=== PATIENT | female | born 1975 | race Caucasian/White ===

== ENCOUNTER → 2016-10-07 | Outpatient (CLI) | payer OTHER ==
[~2016-10-07] MED LIST: BACL1TAB PO
[2016-10-07 09:54] LABS: BASO % 0.7 %; BASO ABS # 0.03 K/uL (0-0.2); COMPLETE YES; EOS % 2.1 %; IG% 0.2 %; LYMPH % 32.6 %; LYMPH ABS # 1.39 K/uL (1.2-3.4); MEAN CELL VOLUME 87.5 fL (80-100); MEAN CORPUSCULAR HEMOGLOBIN 29.5 pg (25-34); MEAN CORPUSCULAR HGB CONC 33.8 g/dl (32-36); MEAN PLATELET VOLUME 12.4 fL (7.4-10.4); MONO % 8.2 %; NEUT % 56.2 %; PLATELET COUNT 214 K/uL (130-400); RED BLOOD COUNT 4.57 M/uL (4.2-5.4); WHITE BLOOD COUNT 4.27 K/uL (4.8-10.8)
[2016-10-07 11:48] LABS: ALKALINE PHOSPHATASE 63 U/L (45-117); ALT/SGPT 17 U/L (12-78); AST/SGOT 12 U/L (15-37); BLOOD UREA NITROGEN 17 mg/dl (7-18); BUN/CREATININE RATIO 23.6 (10-20); CALCIUM 8.9 mg/dl (8.5-10.1); CARBON DIOXIDE 24 mmol/L (21-32); CHLORIDE 107 mmol/L (98-107); CREATININE 0.73 mg/dl (0.60-1.20); GLUCOSE 73 mg/dl (70-99); POTASSIUM 4.4 mmol/L (3.5-5.1); SODIUM 142 mmol/L (136-145)
[2016-10-07 11:49] LABS: ALB/GLOB RATIO 1.1 (0.9-2)
== END | disposition home or self-care (01) ==
LOC: C.LAB1850 09:19
PROVIDERS: ATTEND Internal Medicine
DX: E55.9 Vitamin D deficiency, unspecified (principal); M13.0 Polyarthritis, unspecified

== ENCOUNTER → 2016-11-04 | Outpatient (CLI) | payer OTHER ==
--- NOTE | 2016-11-04 15:37 | DIAGNOSTIC IMAGING REPORT ---
RIGHT HAND MIN 3 VIEWS ROUTINE, RIGHT WRIST MIN 3 VIEWS ROUTINE CLINICAL HISTORY: Right wrist and right hand pain. Fall. COMPARISON STUDY: None. FINDINGS: No fracture or dislocation within the right hand or right wrist. The scaphoid appears intact. Soft tissues are unremarkable. No radiopaque foreign bodies. IMPRESSION: No fracture or dislocation within the right hand or right wrist. Electronically signed by: Shai Jones M.D. 11/04/2016 3:35 PM Dictated Date/Time: 11/04/2016 3:32 PM
== END | disposition home or self-care (01) ==
LOC: C.RADBC 14:52
PROVIDERS: ATTEND Family Medicine
DX: M79.641 Pain in right hand (principal); M25.531 Pain in right wrist; M79.644 Pain in right finger(s)

== ENCOUNTER → 2016-11-19 | Outpatient (CLI) | payer OTHER ==
[2016-11-19 12:09] LABS: HEMATOCRIT 39.4 % (37-47); MEAN CELL VOLUME 86.8 fL (80-100); MEAN CORPUSCULAR HEMOGLOBIN 29.3 pg (25-34); MEAN CORPUSCULAR HGB CONC 33.8 g/dl (32-36); MEAN PLATELET VOLUME 11.8 fL (7.4-10.4); PLATELET COUNT 230 K/uL (130-400); RED BLOOD COUNT 4.54 M/uL (4.2-5.4); WHITE BLOOD COUNT 6.77 K/uL (4.8-10.8)
== END | disposition home or self-care (01) ==
LOC: C.LAB1850 11:31
PROVIDERS: ATTEND Physician Assistant
DX: R10.32 Left lower quadrant pain (principal)

== ENCOUNTER → 2016-12-30 | Outpatient (CLI) | payer OTHER ==
--- NOTE | 2016-12-30 16:58 | MAMMOGRAPHY REPORT ---
BILATERAL DIGITAL SCREENING MAMMOGRAM TOMOSYNTHESIS WITH CAD: 12/30/2016 CLINICAL HISTORY: Routine screening. TECHNIQUE: Breast tomosynthesis in addition to standard 2D mammography was performed. Current study was also evaluated with a Computer Aided Detection (CAD) system. COMPARISON: Comparison is made to exam dated: 12/25/2015 mammogram - [facility]. BREAST COMPOSITION: The tissue of both breasts is heterogeneously dense, which may obscure small ma sses. FINDINGS: There is a partially visualized oval 17 mm mass within the left posterior breast seen on t he cc view only posterior to the left nipple, best seen on the tomosynthesis images. The visualized margins are circumscribed. This localizes to the inferior breast on the tomosynthesis localizer ba r. Recommend spot compression tomosynthesis views and possible breast ultrasound for further evalua tion. The remainder of both breasts are stable compared to prior exams, without suspicious masses, calcifi cations, or areas of architectural distortion noted. IMPRESSION: ACR BI-RADS CATEGORY 0: INCOMPLETE EVALUATION: NEED ADDITIONAL IMAGING EVALUATION Left breast mass, for which additional imaging evaluation is recommended. The patient will be martines d to schedule an appointment. Approximately 10% of breast cancers are not detected with mammography. A negative mammographic repor t should not delay biopsy if a clinically suggestive mass is present. Sara Segovia M.D. ah/:12/30/2016 16:15:32 Park Ranger: Jensen MENA)(M), [facility] letter sent: Addl Imaging 0 BI-RADS Code: ACR BI-RADS Category 0: Incomplete Evaluation: Need Additional Imaging Evaluation
== END | disposition home or self-care (01) ==
LOC: C.MAMM 09:28
PROVIDERS: ATTEND Internal Medicine
DX: Z12.31 Encounter for screening mammogram for malignant neoplasm of breast (principal); N63 Unspecified lump in breast

== ENCOUNTER → 2017-01-06 | Outpatient (CLI) | payer OTHER ==
--- NOTE | 2017-01-07 08:16 | MAMMOGRAPHY REPORT ---
ULTRASOUND OF LEFT BREAST: 01/06/2017 CLINICAL HISTORY: Callback from screening mammography for an incompletely visualized 17 mm mass in t he far posterior left breast, only seen on the MLO view but thought to project inferiorly based on t he tomosynthesis localizer bar. This may correlate with a recent CT finding in the left inferior leroy ast. COMPARISON: Comparison is made to exams dated: 12/25/2015 mammogram and 12/30/2016 mammogram, CT abdom en and pelvis dated 11/25/2016 - [facility]. FINDINGS: Targeted ultrasound was performed in the 5:00 through 7:00 axes of the left breast to eval uate for the incompletely visualized mammographic mass. In the 5:30 left breast, 600 m from the nip ple, there is an oval parallel circumscribed hypoechoic solid mass measuring 21.9 x 13.4 x 15.5 mm. This correlates well in size, shape and location as the incompletely visualized mammographic mass a nd also with the incidental finding seen on recent CT. This most likely represents a fibroadenoma, but definitive characterization with tissue sampling is recommended. IMPRESSION: ACR BI-RADS CATEGORY 4A: LOW SUSPICION FOR MALIGNANCY - FOLLOW-UP RECOMMENDED 1. Ultrasound guided core needle biopsy is recommended for an indeterminate solid circumscribed 21. 9 mm mass in the 5:30 left breast, which could represent a benign fibroadenoma. These results and recommendations were discussed with the patient at the time of the exam. She tent atively scheduled the biopsy prior to leaving our department. Vanessa Canales M.D. ay/:01/06/2017 13:17:14 Crosscutter Rolled Glass: Dr. Vanessa Canales, [facility] letter sent: Abnormal /5 BI-RADS Code: ACR BI-RADS Category 4A: Low Suspicion For Malignancy
== END | disposition home or self-care (01) ==
LOC: C.MAMM 12:39
PROVIDERS: ATTEND Internal Medicine
DX: N63 Unspecified lump in breast (principal)

== ENCOUNTER → 2017-01-13 | Outpatient (CLI) | payer OTHER ==
--- NOTE | 2017-01-13 08:44 | Discharge Instructions ---
Discharge Instructions Procedure Procedure Date: January 13, 2017. Reason for visit: Left Mass. Discharge Discharge Date: January 13, 2017. Discharge Diagnosis: post left breast ultrasound guided core biopsy Instructions Activity Recommendations: Additional Limitations (see below) Return to School/Work: no limitations Recommended Home Diet: No Limitations Provider Instructions: ACTIVITY RECOMMENDATIONS: * No lifting, pushing, pulling or exercising the affected side for three days. RETURN TO SCHOOL/WORK: * You may return to work/school after the procedure, but do not perform any strenuous activities for 24 to 48 hours. MEDICATIONS: * Tylenol (two 325 mg) every four to six hours if needed for mild pain (if not allergic to Tylenol). DIET: * Resume previous diet. SPECIAL CARE INSTRUCTIONS: * Keep biopsy site dry for 24 hours. May shower after 24 hours, but do not soak (bathe) incision. * May remove Tegaderm (plastic patch) tomorrow AFTER showering. * Leave the steri-strips on for one week. Allow the steri-strips to fall off by themselves. If not off after one week, you may remove them. You may place a Bandaid crosswise over the strips, if desired. * Apply ice 10 minutes on and 10 minutes off as needed. * Wear a bra at bedtime to sleep more comfortably for 2-3 days. * Your referring physician should have the results after approximately 5 to 7 business days. * Call for unusual bleeding, fever, drainage, etc or if you have any questions call [phone] during normal business hours or after hours call Dr Canales, . FOLLOW UP VISIT: Follow-up with Referring Physician as scheduled. Allergies Coded Allergies: No Known Allergies (Verified , 11/09/14) Uncoded Allergies: NKA (Allergy, Unknown, 03/07/15) Leah Kendall Recommendations: Call your doctor if: * Temperature above 101 degrees * Pain not relieved by pain medicine ordered * There is increased drainage or redness from any incision * You have any unanswered questions or concerns. Your Doctors Instructions noted above were prepared by provider Vanessa Canales. Patient Signature Section: Patient Instructions Signature Page Jose M Sabillon Patient (or Guardian) Signature/Date: I have read and understand the instructions given to me by my caregivers. Caregiver/RN/Doctor Signature/Date: The above-named patient and/or guardian has received patient instructions on this date. + Original Patient Signature Page (only) stays with chart. Please make copy for patient.
--- NOTE | 2017-01-13 14:50 | MAMMOGRAPHY REPORT ---
ULTRASOUND GUIDED BIOPSY LEFT BREAST: 01/13/2017 CLINICAL HISTORY: 41-year-old woman presents for biopsy of an oval parallel circumscribed solid 2 cm mass in the 5:30 left breast, 6 cm from the nipple. COMPARISON: Comparison is made to exams dated: 01/06/2017 ultrasound, 12/30/2016 mammogram, and 016 mammogram - [facility]. PATIENT CONSENT: The procedure, risks and benefits were discussed with the patient and informed writ ten consent was obtained. Specific risks to this procedure include: bleeding, infection, puncture of adjacent structure, nontarget biopsy, sampling error, metal allergy medication reaction. PROCEDURE DESCRIPTION: A time out was performed and the left breast was agreed as the site of biopsy . The skin was prepped and draped in the usual sterile fashion. The solid oval circumscribed mass in the 5:30 left breast was chosen as the target for biopsy. Subcutaneous and intraparenchymal 1% buff ered lidocaine was administered as local anesthesia. A skin incision was made. Through the incision , 3 samples were taken with a 14 gauge Achieve biopsy device. A metallic marker was placed at the bi opsy site. Hemostasis was achieved after manual compression. The patient tolerated the procedure wel l and there was no immediate complication. A postprocedure left CC tomosynthesis view was obtained. However, neither the mass nor the metallic biopsy marker are seen given the far posterior and inferior location. No significant hematoma is s een anterior to the mass on the CC view. IMPRESSION: ULTRASOUND GUIDED BIOPSY Status post ultrasound-guided core needle biopsy of a solid circumscribed oval mass in the 5:30 left breast, with biopsy marker placed at the site. The patient will receive notification of the biopsy results from her referring physician. Vanessa Canales M.D. ay/:01/13/2017 09:43:20 Driver Operator: Lou MENA)(Annamaria), [facility]
--- NOTE | 2017-01-13 14:54 | MAMMOGRAPHY REPORT ---
UNILATERAL LEFT DIGITAL DIAGNOSTIC MAMMOGRAM TOMOSYNTHESIS: 01/13/2017 CLINICAL HISTORY: Status post ultrasound-guided core biopsy of a solid oval parallel circumscribed m ass in the 5:30 inferior left breast. Please refer to the report from left breast ultrasound guided core biopsy performed at the same time for full detail. IMPRESSION: POST PROCEDURE IMAGING FOR MARKER PLACEMENT Please refer to the report from left breast ultrasound guided core biopsy performed at the same time for full detail. Approximately 10% of breast cancers are not detected with mammography. A negative mammographic repor t should not delay biopsy if a clinically suggestive mass is present. Vanessa Canales M.D. ay/:01/13/2017 09:36:35 Petal Cutter: Lou RAMOS(Everett)(M), [facility] BI-RADS Code: Post Procedure Imaging For Marker Placement
== END | disposition home or self-care (01) ==
LOC: C.MAMM 07:53
PROVIDERS: ATTEND Internal Medicine
DX: D24.2 Benign neoplasm of left breast (principal)

== ENCOUNTER → 2017-03-24 | Outpatient (CLI) | payer OTHER | END | disposition home or self-care (01) | LOC: C.PAPS 14:17 | PROVIDERS: ATTEND Obstetrics & Gynecology | DX: Z12.4 Encounter for screening for malignant neoplasm of cervix (principal) ==

== ENCOUNTER → 2017-04-07 | Outpatient (CLI) | payer OTHER ==
[2017-04-07 12:19] LABS: HEMATOCRIT 39.3 % (37-47); MEAN CELL VOLUME 89.9 fL (80-100); MEAN CORPUSCULAR HEMOGLOBIN 30.4 pg (25-34); MEAN CORPUSCULAR HGB CONC 33.8 g/dl (32-36); MEAN PLATELET VOLUME 12.5 fL (7.4-10.4); PLATELET COUNT 212 K/uL (130-400); RED BLOOD COUNT 4.37 M/uL (4.2-5.4); WHITE BLOOD COUNT 5.95 K/uL (4.8-10.8)
[2017-04-07 12:33] LABS: ALT/SGPT 33 U/L (12-78); BLOOD UREA NITROGEN 8 mg/dl (7-18); CALCIUM 8.8 mg/dl (8.5-10.1); CARBON DIOXIDE 29 mmol/L (21-32); CHLORIDE 109 mmol/L (98-107); CHOLESTEROL 217 mg/dl (0-200); GLUCOSE 81 mg/dl (70-99); POTASSIUM 3.7 mmol/L (3.5-5.1); SODIUM 141 mmol/L (136-145); TRIGLYCERIDES 200 mg/dl (0-150); VERY LOW DENSITY LIPOPROT CALC 40 mg/dl
[2017-04-07 12:43] LABS: ALB/GLOB RATIO 1.1 (0.9-2); ALKALINE PHOSPHATASE 50 U/L (45-117); AST/SGOT 24 U/L (15-37); CHOLESTEROL/HDL RATIO 4.8; HDL CHOLESTEROL 45 mg/dl; LDL CHOLESTEROL CALCULATED 132 mg/dl
== END | disposition home or self-care (01) ==
LOC: C.LAB 09:35
PROVIDERS: ATTEND Internal Medicine
DX: Q79.6 Ehlers-Danlos syndromes (principal); E55.9 Vitamin D deficiency, unspecified; E04.2 Nontoxic multinodular goiter

== ENCOUNTER → 2017-11-25 | Outpatient (CLI) | payer OTHER ==
[2017-11-25 10:34] LABS: HEMATOCRIT 41.2 % (37-47); MEAN CORPUSCULAR HEMOGLOBIN 30.2 pg (25-34); MEAN PLATELET VOLUME 12.4 fL (7.4-10.4); PLATELET COUNT 214 K/uL (130-400); RED CELL DISTRIBUTION WIDTH CV 13.3 % (11.5-14.5); RED CELL DISTRIBUTION WIDTH SD 43.3 fL (36.4-46.3); WHITE BLOOD COUNT 4.13 K/uL (4.8-10.8)
[2017-11-25 11:05] LABS: BLOOD UREA NITROGEN 12 mg/dl (7-18); CALCIUM 9.2 mg/dl (8.5-10.1); CARBON DIOXIDE 27 mmol/L (21-32); CREATININE 0.81 mg/dl (0.60-1.20); GLUCOSE 90 mg/dl (70-99); SODIUM 138 mmol/L (136-145)
[2017-11-25 11:11] LABS: ALKALINE PHOSPHATASE 62 U/L (45-117); ALT/SGPT 15 U/L (12-78); AST/SGOT 16 U/L (15-37); CHOLESTEROL 202 mg/dl (0-200); LDL CHOLESTEROL CALCULATED 121 mg/dl; TOTAL PROTEIN 7.6 gm/dl (6.4-8.2)
== END | disposition home or self-care (01) ==
LOC: C.LABBC 08:35
PROVIDERS: ATTEND Internal Medicine
DX: G37.9 Demyelinating disease of central nervous system, unspecified (principal); E78.5 Hyperlipidemia, unspecified; E55.9 Vitamin D deficiency, unspecified

== ENCOUNTER → 2018-01-05 | Outpatient (CLI) | payer OTHER ==
--- NOTE | 2018-01-07 07:48 | MAMMOGRAPHY REPORT ---
BILATERAL DIGITAL SCREENING MAMMOGRAM TOMOSYNTHESIS WITH CAD: 01/05/2018 CLINICAL HISTORY: Routine screening. Patient has no complaints. TECHNIQUE: Breast tomosynthesis in addition to standard 2D mammography was performed. Current study was also evaluated with a Computer Aided Detection (CAD) system. COMPARISON: Comparison is made to exams dated: 01/13/2017 mammogram, 01/13/2017 ultrasound biopsy, 12/28 ultrasound, 12/30/2016 mammogram, and 12/25/2015 mammogram - [facility]. BREAST COMPOSITION: There are scattered areas of fibroglandular density in both breasts. FINDINGS: No suspicious masses, calcifications, or areas of architectural distortion are noted in ei ther breast. There has been no significant interval change compared to prior exams. A partially visu alized oval circumscribed 2.2 cm mass in the left 6:00 far posterior breast does not appear significa ntly changed in size compared to the prior 2017 ultrasound exam, and was previously biopsied in 2017 and yielded a benign fibroadenoma at pathology. A triangle marker was placed on the skin at this sit e as the mass is palpable to the patient. IMPRESSION: ACR BI-RADS CATEGORY 2: BENIGN There is no mammographic evidence of malignancy. A 1 year screening mammogram is recommended. Recomm end continued clinical follow-up for the palpable 2.2 cm mass in the left 6:00 breast which was previ ously biopsied in 2017 and yielded a benign fibroadenoma. The patient will receive written notification of the results. Approximately 10% of breast cancers are not detected with mammography. A negative mammographic report should not delay biopsy if a clinically suggestive mass is present. Sara Segovia M.D. ah/:01/05/2018 16:07:07 Well Control Instructor: Britney RAMOS(Everett)(M), [facility] letter sent: Normal 1/2 BI-RADS Code: ACR BI-RADS Category 2: Benign
== END | disposition home or self-care (01) ==
LOC: C.MAMM 09:27
PROVIDERS: ATTEND Obstetrics & Gynecology
DX: Z12.31 Encounter for screening mammogram for malignant neoplasm of breast (principal); N63.42 Unspecified lump in left breast, subareolar

== ENCOUNTER 2021-11-22 23:39 | Inpatient (IN) ==
[2021-11-22] MEDS ORDERED: SODIUM CHLORIDE 0.9% 1000ML 1,000 ML IV SCH (23:45)
[2021-11-22] MEDS ORDERED: ONDANSETRON INJ 2 MG/ML 2 ML VIAL IV STA (23:54)
[2021-11-22] MEDS ORDERED: MoRPHine SULFATE 4 MG/ML 1 ML CARP\\VIAL IV STA (23:54)
[2021-11-23 00:41] LABS: Basophils # (auto) 0.02 K/uL (0-0.2); Basophils % (auto) 0.2 %; Eosinophils # (auto) 0.07 K/uL (0-0.5); Eosinophils % (auto) 0.8 %; Hematocrit (blood only) 40.3 % (37-47); Hemoglobin 13.6 g/dL (12.0-16.0); Immature Granulocytes # (auto) 0.02 K/uL (0.00-0.02); Immature Granulocytes % (auto) 0.2 %; Lymphocytes % (auto) 16.6 %; Mean Corpuscular Hemoglobin 29.6 pg (25-34); Mean Corpuscular Hgb Conc 33.7 g/dL (32-36); Mean Corpuscular Volume 87.6 fL (80-100); Mean Platelet Volume 12.3 fL (7.4-10.4); Monocytes # (auto) 0.98 K/uL (0.11-0.59); Monocytes % (auto) 10.9 %; Neutrophils # (auto) 6.44 K/uL (1.4-6.5); Neutrophils % (auto) 71.3 %; Platelet Count 249 K/uL (130-400); RDW Coefficient of Variation 13.3 % (11.5-14.5); RDW Standard Deviation 42.3 fL (36.4-46.3); White Blood Count 9.03 K/uL (4.8-10.8)
[2021-11-23 00:49] LABS: Appearance Urine Clear (Clear); Bilirubin Urine Negative (Negative); Blood Urine Negative (Negative); Color Urine Yellow; Glucose Urine UA Negative (Negative); Ketones Urine Negative (Negative); Leukocyte Esterase Urine Negative (Negative); Nitrite Urine Negative (Negative); Protein Urine Negative (Negative); Specific Gravity Urine 1.013 (1.000-1.030); Urobilinogen Urine Negative (Negative); pH Urine 5.5 (4.5-7.5)
[2021-11-23 01:02] LABS: Albumin Globulin Ratio 1.5 (0.9-2); Albumin Level 4.2 gm/dl (3.4-5.0); BUN Creatinine Ratio 12.3 (10-20); Bilirubin,Total 0.4 mg/dl (0.2-1.0); Calcium 8.7 mg/dl (8.5-10.1); Creatinine Clr Calc Pharmacy 132.5 ml/min; Est GFR (African American) 128.9 ml/min; Est GFR (Non-African American) 111.2 ml/min; Globulin 2.8 gm/dl (2.5-4.0); Potassium 3.6 mmol/L (3.5-5.1)
[2021-11-23] MEDS ORDERED: AMPICILLIN/SULBACTAM SOD 3,000 MG in 0.9 % SODIUM CHLORIDE 100 ML IV STA (01:47)
[2021-11-23] MEDS ORDERED: ACETAMINOPHEN 1,000 MG/100 ML VIAL IV STA (01:47)
--- NOTE | 2021-11-23 04:40 | History & Physical Report ---
Date of Service November 23, 2021 Assessment & Plan (1) History of diverticulitis: Plan: 46-year-old female with a past medical history of diverticulitis, positive HARMONY on Humira, Meryl-Danlos polyarthropathy and hemorrhoids presents for evaluation of abdominal pain diagnosed with diverticulitis. #Diverticulitis Patient with a history of diverticulitis and recent colonoscopy presenting with abdominal pain and imaging findings consistent with diverticulitis. Dr. Chen was consulted recommending Unasyn. Patient will be admitted for IV antibiotics and pain control -Daily CBC -N.p.o. -Maintenance fluids with LR -Dr. Chen consulted -Unasyn -Morphine 2 mg / 4 mg every 3 hours as needed pain -Zofran for nausea #Meryl-Danlos syndrome, positive HARMONY, polyarthropathy Chronic problems -Pain management as above -Hold Humira #Electrolyte derangements Replete as indicated #Irritable bowel syndrome Potentially contributing to presentation -Monitor for signs of constipation #Migraines -Holding sumatriptan FENa: N.p.o. Code Status: Full code DVT PPX: Contraindicated in the event surgery is warranted SCDs PT/OT: Not indicated Case Management: Not indicated Dispo: Raúl Rodriguez MD PGY 3, FCM This chart was completed utilizing [employer]ation voice recognition software. Grammatical errors, random word insertions, pronoun errors, and in complete sentences are an occasional consequence of the system. Any questions or concerns about the content, text, or information contained within the body of this dictation should be addressed directly to the physician for clarification. (2) Positive HARMONY (antinuclear antibody): (3) Polyarthropathy or polyarthritis of multiple sites: (4) Irritable bowel syndrome: (5) Hyperlipidemia: (6) Sigmoid diverticulitis: (7) Abdominal pain: History of Present Illness Primary Care Provider: Jhonny Pereira MD 46-year-old female with a past medical history of diverticulitis, positive HARMONY on Humira, Meryl-Danlos polyarthropathy and hemorrhoids presents for evaluation of abdominal pain diagnosed with diverticulitis. Patient reports that she has had numerous bouts of diverticulitis throughout her life most recently approximately a month ago she had the worst bout which required a month of Cipro Flagyl subsequently followed by Augmentin. She had a colonoscopy on Wednesday of this week and did well in the immediate postoperative. She began to feel typical diverticulitis pains on Wednesday with accompanied loss of appetite, nausea abdominal pain fevers and chills she denies any vomiting. She states her last bowel movement was yesterday. She denies any chest pressure, chest pain, shortness of breath. In the emergency department routine labs were obtained CBC was unremarkable, chemistries are unremarkable, CMP was unremarkable, urine was unremarkable CT abdomen pelvis was performed and consistent with diverticulitis. Hospitalist service was consulted for admission. Patient was sitting upright in bed when I arrived in no acute distress she reiterated in HPI as described above. She notes that she is not currently taking oxycodone or cyclobenzaprine their historical medications from her prior elbow surgery. Allergies Allergy/AdvReac Type Severity Reaction Status Date / Time No Known Allergies Allergy Verified 11/23/21 01:31 Home Medications Medication Instructions Recorded Confirmed Type multivitamin 1 tab PO QAM 11/25/20 11/23/21 History sumatriptan 20 mg/actuation nasal 20 mg INTNAS Q2H PRN #6 ea 07/10/21 11/23/21 Rx spray (Imitrex) adalimumab 40 mg/0.8 mL 40 mg SUBCUT UD 08/25/21 11/23/21 History subcutaneous pen kit (Humira Pen) cyclobenzaprine 5 mg tablet 5 mg PO UD PRN 08/25/21 11/23/21 History ergocalciferol (vitamin D2) 1,250 1,250 mcg PO WK #12 cap 10/01/21 11/23/21 Rx mcg (50,000 unit) capsule (Vitamin D2) oxycodone-acetaminophen 5 mg-325 1 tab PO Q6 PRN 11/23/21 11/23/21 History mg tablet Past Med/Surg History Medical History Meryl-Danlos syndrome, type 3 HYPERMOBILITY PER PT History of diverticulitis History of migraine headaches Internal hemorrhoids Rheumatoid arthritis Vitamin D deficiency Surgical History History of breast biopsy L-BENIGN History of colonoscopy History of hip surgery (~07/20/19) left & right trochanteric bursa excision History of tooth extraction WISDOM TEETH Hx of elbow surgery RT/LEFT Hx of lumpectomy LEFT S/P LEEP hx Family History Mother Arthritis Migraine headache Other No family history of adverse response to anesthesia Denies family history of Ovarian cancer Prostate cancer Myocardial infarction Breast cancer Colorectal cancer Social History Smoking Status: Never smoker Second Hand Exposure: No; Hx Alcohol Use: No Hx Substance Use: No Preferred Language: Pashto Communication Ability: Effective Deli Cutter Slicer Required: No Beliefs That Will Affect Care: None marital status: Current Living Situation: Family Current Living Situation Comment: Lives with and 2 kids current occupational status: employed 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 How many Children do You have: 2 Feels Safe at Home: Yes Childhood Exposure to Second-Hand Smoke: No during the past year weight has: remained stable Dental Care, Regularly: Yes Physical Activity Frequency: 5-6 Times per Week Seatbelt Use: always Sunscreen Use: Yes Gender Identity: Female Assistive Devices: None Review of Systems Review of Systems: as above Physical Exam Physical Exam: General: No acute distress HEENT: Normocephalic atraumatic Neck: No significant lymphadenopathy, trachea midline, normal to visual inspection Cardiac: Regular rate and rhythm, normal S1, normal S2, I did not appreciated any significant murmurs rubs or gallops, I did not appreciate any significant pedal edema, No calf tenderness, capillary refill is less than 3 seconds Respiratory: Clear to auscultation bilaterally with symmetrical chest rise, I did not appreciate any significant wheezes, rales, rhonchi, no increased work of breathing GI: Normal bowel sounds, soft, tender to palpation of left lower quadrant, no rebound, no guarding MSK: No sensory or motor changes, moves all extremities without issue, extremities are warm and well-perfused Skin: [place], clean, dry, intact. Neuro: Alert and oriented x4 Psych: Calm, cooperative, logical thought process Results & Data Results & Data ([facility]) Vital Signs (Past 12 Hours) Vital Signs Temp Pulse Pulse Resp BP BP Pulse Ox 11/23/21 02:00 81 18 138/74 99 11/22/21 23:56 37.7 C H 119 H 18 136/84 97 03/26/22 23:40 37 C 135 H 18 139/94 100 Laboratory Results 11/23/21 11/23/21 11/23/21 Range/Units 02:16 00:24 00:24 WBC (4.8-10.8) K/uL RBC (4.2-5.4) M/uL Hgb (12.0-16.0) g/dL Hct (37-47) % MCV (80-100) fL MCH (25-34) pg MCHC (32-36) g/dL RDW Std Deviation (36.4-46.3) fL RDW Coeff of Geovanna (11.5-14.5) % Plt Count (130-400) K/uL MPV (7.4-10.4) fL Immature Gran % (Auto) % Neut % (Auto) % Lymph % (Auto) % [place] % (Auto) % Eos % (Auto) % Baso % (Auto) % Neut # (Auto) (1.4-6.5) K/uL Lymph # (Auto) (1.2-3.4) K/uL [place] # (Auto) (0.11-0.59) K/uL Eos # (Auto) (0-0.5) K/uL Baso # (Auto) (0-0.2) K/uL Immature Gran # (Auto) (0.00-0.02) K/uL Sodium 136 (136-145) mmol/L Potassium 3.6 (3.5-5.1) mmol/L Chloride 104 (98-107) mmol/L Carbon Dioxide 25 (21-32) mmol/L Anion Gap 7 (3-11) BUN 7 (6-23) mg/dl Creatinine 0.57 L (0.6-1.2) mg/dl Est Cr Clr Drug Dosing 132.5 ml/min Est GFR ( Amer) 128.9 ml/min Est GFR (Non-Af Amer) 111.2 ml/min BUN/Creatinine Ratio 12.3 (10-20) Glucose 104 H (70-99(Fasting)) mg/dl Calcium 8.7 (8.5-10.1) mg/dl Total Bilirubin 0.4 (0.2-1.0) mg/dl AST 13 (13-39) U/L ALT 14 (7-52) U/L Alkaline Phosphatase 66 (34-104) U/L Total Protein 7.0 (6.0-8.3) gm/dl Albumin 4.2 (3.4-5.0) gm/dl Globulin 2.8 (2.5-4.0) gm/dl Albumin/Globulin Ratio 1.5 (0.9-2) Lipase 32 (11-82) U/L Urine Color Yellow Urine Appearance Clear (Clear) Urine pH 5.5 (4.5-7.5) Ur Specific [place] 1.013 (1.000-1.030) Urine Protein Negative (Negative) Urine Glucose (UA) Negative (Negative) Urine Ketones Negative (Negative) Urine Blood Negative (Negative) Urine Nitrite Negative (Negative) Urine Bilirubin Negative (Negative) Urine Urobilinogen Negative (Negative) Ur Leukocyte Esterase Negative (Negative) SARS-CoV-2, RNA, NAAT NEGATIVE (NEGATIVE) 11/23/21 Range/Units 00:24 WBC 9.03 (4.8-10.8) K/uL RBC 4.60 (4.2-5.4) M/uL Hgb 13.6 (12.0-16.0) g/dL Hct 40.3 (37-47) % MCV 87.6 (80-100) fL MCH 29.6 (25-34) pg MCHC 33.7 (32-36) g/dL RDW Std Deviation 42.3 (36.4-46.3) fL RDW Coeff of Geovanna 13.3 (11.5-14.5) % Plt Count 249 (130-400) K/uL MPV 12.3 H (7.4-10.4) fL Immature Gran % (Auto) 0.2 % Neut % (Auto) 71.3 % Lymph % (Auto) 16.6 % [place] % (Auto) 10.9 % Eos % (Auto) 0.8 % Baso % (Auto) 0.2 % Neut # (Auto) 6.44 (1.4-6.5) K/uL Lymph # (Auto) 1.50 (1.2-3.4) K/uL [place] # (Auto) 0.98 H (0.11-0.59) K/uL Eos # (Auto) 0.07 (0-0.5) K/uL Baso # (Auto) 0.02 (0-0.2) K/uL Immature Gran # (Auto) 0.02 (0.00-0.02) K/uL Sodium (136-145) mmol/L Potassium (3.5-5.1) mmol/L Chloride (98-107) mmol/L Carbon Dioxide (21-32) mmol/L Anion Gap (3-11) BUN (6-23) mg/dl Creatinine (0.6-1.2) mg/dl Est Cr Clr Drug Dosing ml/min Est GFR ( Amer) ml/min Est GFR (Non-Af Amer) ml/min BUN/Creatinine Ratio (10-20) Glucose (70-99(Fasting)) mg/dl Calcium (8.5-10.1) mg/dl Total Bilirubin (0.2-1.0) mg/dl AST (13-39) U/L ALT (7-52) U/L Alkaline Phosphatase (34-104) U/L Total Protein (6.0-8.3) gm/dl Albumin (3.4-5.0) gm/dl Globulin (2.5-4.0) gm/dl Albumin/Globulin Ratio (0.9-2) Lipase (11-82) U/L Urine Color Urine Appearance (Clear) Urine pH (4.5-7.5) Ur Specific [place] (1.000-1.030) Urine Protein (Negative) Urine Glucose (UA) (Negative) Urine Ketones (Negative) Urine Blood (Negative) Urine Nitrite (Negative) Urine Bilirubin (Negative) Urine Urobilinogen (Negative) Ur Leukocyte Esterase (Negative) SARS-CoV-2, RNA, NAAT (NEGATIVE) Code Status & VTE Plan Code Status full Supervising Physician Co-Signing Physician Notes Patient seen and examined, chart reviewed, case discussed with Dr. Rodriguez and agree with his assessment and plan as documented above. In brief, patient is a 46-year-old female on Humira for rheumatoid arthritis presenting with recurrent diverticulitis. Patient had just completed a prolonged course of Cipro, Flagyl and then Augmentin. On exam she is afebrile, hemodynamically stable, no acute distress Skinwarm, dry, intact HEENTnormocephalic, atraumatic, pupils equal and reactive, moist mucous membranes Heart+ S1, S2, regular Lungsclear to auscultation anteriorly Abdomenpositive bowel sounds, soft, tender in the left lower quadrant with voluntary guarding, no rebound Extremitieswarm, well-perfused Labs and images reviewed No perforation, abscess or complications noted Assessment/plan 46-year-old female with history of RA on Humira, immunocompromised presenting with recurrent diverticulitis. Afebrile, hemodynamically stable and nontoxic in appearance Pain control, antiemetics Unasyn GI consult appreciated Patient may need surgical evaluation in the future Remainder of plan as above
[2021-11-23] MEDS ORDERED: MoRPHine SULFATE 4 MG/ML 1 ML CARP\\VIAL IV PRN (04:59)
[2021-11-23] MEDS ORDERED: ONDANSETRON INJ 2 MG/ML 2 ML VIAL IV PRN (04:59)
[2021-11-23] MEDS ORDERED: MoRPHine SULFATE 2 MG/ML CARP IV PRN ×2 (04:59→11:47)
--- NOTE | 2021-11-23 05:02 | Emergency Department Note ---
History of Present Illness General Chief complaint: Abdominal Pain Stated complaint: R SIDE ABD PAIN RADIATING INTO BACK AND LEG Time Seen by Provider: 11/22/21 23:46 History of Present Illness Maximum Pain Intensity: 2 This is a 46-year-old female presenting to the emergency department for evaluation of left lower quadrant abdominal pain worsening over the course of today. The patient has a fairly complicated recent history with diverticulitis. The patient has been on long-term courses of Cipro and Flagyl as well as a course of Augmentin over the past few months. She did undergo outpatient colonoscopy [address] Chen, that did show small diverticula and small polyp that was removed. Patient is on Humira for rheumatoid arthritis. She believes that she may have had a low-grade fever tonight. She rates her discomfort a 2/10, dull, nonradiating. Home Medications Medication Instructions Recorded Confirmed Type multivitamin 1 tab PO QAM 11/25/20 11/23/21 History sumatriptan 20 mg/actuation nasal 20 mg INTNAS Q2H PRN #6 ea 07/10/21 11/23/21 Rx spray (Imitrex) adalimumab 40 mg/0.8 mL 40 mg SUBCUT UD 08/25/21 11/23/21 History subcutaneous pen kit (Humira Pen) cyclobenzaprine 5 mg tablet 5 mg PO UD PRN 08/25/21 11/23/21 History ergocalciferol (vitamin D2) 1,250 1,250 mcg PO WK #12 cap 10/01/21 11/23/21 Rx mcg (50,000 unit) capsule (Vitamin D2) oxycodone-acetaminophen 5 mg-325 1 tab PO Q6 PRN 11/23/21 11/23/21 History mg tablet Allergies Allergy/AdvReac Type Severity Reaction Status Date / Time No Known Allergies Allergy Verified 11/23/21 01:31 Past Med/Surg History Medical History Meryl-Danlos syndrome, type 3 HYPERMOBILITY PER PT History of diverticulitis History of migraine headaches Internal hemorrhoids Rheumatoid arthritis Vitamin D deficiency Surgical History History of breast biopsy L-BENIGN History of colonoscopy History of hip surgery (~07/20/19) left & right trochanteric bursa excision History of tooth extraction WISDOM TEETH Hx of elbow surgery RT/LEFT Hx of lumpectomy LEFT S/P LEEP hx Family History Mother Arthritis Migraine headache Other No family history of adverse response to anesthesia Denies family history of Ovarian cancer Prostate cancer Myocardial infarction Breast cancer Colorectal cancer Social History Smoking Status: Never smoker Second Hand Exposure: No; Hx Alcohol Use: No Hx Substance Use: No Preferred Language: Greenlandic Communication Ability: Effective Employment Law Specialist Required: No Beliefs That Will Affect Care: None marital status: Current Living Situation: Family Current Living Situation Comment: Lives with and 2 kids current occupational status: employed 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 How many Children do You have: 2 Feels Safe at Home: Yes Childhood Exposure to Second-Hand Smoke: No during the past year weight has: remained stable Dental Care, Regularly: Yes Physical Activity Frequency: 5-6 Times per Week Seatbelt Use: always Sunscreen Use: Yes Gender Identity: Female Assistive Devices: None Review of Systems A total of 10 systems reviewed and were otherwise negative Physical Exam Vital Signs Vital Signs - 24 hr 11/22/21 23:40 11/22/21 23:56 11/23/21 02:00 Temperature 37 C 37.7 C H Temperature Source Temporal Artery Scan Oral Pulse Rate 135 H Pulse Rate [Apical] 119 H 81 Pulse Rhythm [Apical] Regular Regular Pulse Strength [Apical] Normal Normal Respiratory Rate 18 18 18 Respiratory Effort / Characteristics Non-Labored Spontaneous Non-Labored Spontaneous Non-Labored Spontaneous Respiratory Depth Normal Normal Normal Respiratory Pattern Regular Regular Blood Pressure 139/94 Blood Pressure [Right Arm] 136/84 138/74 Blood Pressure Mean 109 Blood Pressure Mean [Right Arm] 101 95 Blood Pressure Position Sitting Blood Pressure Position [Right Arm] Sitting Lying Pulse Oximetry 100 97 99 Oxygen Delivery Method Room Air Room Air Room Air Sepsis Recent Fever Within 48 Hours No Sepsis New/Unexplained Change in Mental Status No Sepsis Action Taken by Nursing No Action Required 11/23/21 04:00 Temperature 37.5 C Temperature Source Oral Pulse Rate Pulse Rate [Apical] 67 Pulse Rhythm [Apical] Regular Pulse Strength [Apical] Normal Respiratory Rate 18 Respiratory Effort / Characteristics Non-Labored Spontaneous Respiratory Depth Normal Respiratory Pattern Blood Pressure Blood Pressure [Right Arm] 136/84 Blood Pressure Mean Blood Pressure Mean [Right Arm] 101 Blood Pressure Position Blood Pressure Position [Right Arm] Lying Pulse Oximetry 97 Oxygen Delivery Method Room Air Sepsis Recent Fever Within 48 Hours Sepsis New/Unexplained Change in Mental Status Sepsis Action Taken by Nursing VITALS: Vitals are noted on the nurse's note and reviewed by myself. Vital signs with mild tachycardia GENERAL: Well-developed, well-nourished, white female, who is in no acute distress and resting comfortably. Patient is cooperative with the examination. HEAD: Normocephalic atraumatic. NECK: Supple without nuchal rigidity. No lymphadenopathy. No thyromegaly. Cervical spine is nontender. HEART: Regular rate and rhythm without murmurs gallops or rubs. LUNGS: Clear to auscultation bilaterally without wheezes, rales or rhonchi. No retractions or accessory muscle use. ABDOMEN: Positive normal bowel sounds x 4. Soft with tenderness in the left lower quadrant. No rebound or guarding. No CVA tenderness. MUSCULOSKELETAL: No muscle atrophy, erythema, or edema noted. Full range of motion in all extremities. Course Administered Medications Discontinued Medications Sodium Chloride (Nss 1000ml) 1,000 mls @ 999 mls/hr IV .Q1H1M FRIDA Stop: 11/23/21 00:45 Last Infusion: 11/23/21 02:21 Dose: 0 mls/hr Documented by: [id number] Admin: 11/23/21 00:19 Dose: 999 mls/hr Documented by: [id number] Acetaminophen (Ofirmev) 1,000 mg in 100 mls @ 400 mls/hr IV NOW STA Stop: 11/23/21 02:01 Last Infusion: 11/23/21 02:20 Dose: 0 mls/hr Documented by: [id number] Admin: 11/23/21 02:00 Dose: 400 mls/hr Documented by: [id number] Morphine Sulfate (Morphine Sulfate 4 Mg/Ml 1 Ml Carp\Vial) 4 mg IV NOW STA Stop: 11/22/21 23:55 Last Admin: 11/23/21 00:19 Dose: 4 mg Documented by: [id number] Ondansetron HCl (Ondansetron Inj 2 Mg/Ml 2 Ml Vial) 4 mg IV NOW STA Stop: 11/22/21 23:55 Last Admin: 11/23/21 00:19 Dose: 4 mg Documented by: [id number] Medical Decision Making Differential Diagnosis Differential diagnosis: Etiologies such as biliary colic, cholecystitis, hepatitis, pancreatitis, cardiac disease, pancreatitis, gastritis, peptic ulcer disease, appendicitis, cystitis, diverticulitis, mesenteric ischemia, inflammatory bowel disease, ileus, bowel obstruction, testicular/adnexal torsion, aortic pathology, shingles, as well as others were considered Laboratory Data Result diagrams: 11/23/21 00:24 11/23/21 00:24 Lab Results 11/23/21 11/23/21 11/23/21 Range/Units 00:24 00:24 00:24 WBC 9.03 (4.8-10.8) K/uL RBC 4.60 (4.2-5.4) M/uL Hgb 13.6 (12.0-16.0) g/dL Hct 40.3 (37-47) % MCV 87.6 (80-100) fL MCH 29.6 (25-34) pg MCHC 33.7 (32-36) g/dL RDW Std Deviation 42.3 (36.4-46.3) fL RDW Coeff of Geovanna 13.3 (11.5-14.5) % Plt Count 249 (130-400) K/uL MPV 12.3 H (7.4-10.4) fL Immature Gran % (Auto) 0.2 % Neut % (Auto) 71.3 % Lymph % (Auto) 16.6 % Converse % (Auto) 10.9 % Eos % (Auto) 0.8 % Baso % (Auto) 0.2 % Neut # (Auto) 6.44 (1.4-6.5) K/uL Lymph # (Auto) 1.50 (1.2-3.4) K/uL [place] # (Auto) 0.98 H (0.11-0.59) K/uL Eos # (Auto) 0.07 (0-0.5) K/uL Baso # (Auto) 0.02 (0-0.2) K/uL Immature Gran # (Auto) 0.02 (0.00-0.02) K/uL Sodium 136 (136-145) mmol/L Potassium 3.6 (3.5-5.1) mmol/L Chloride 104 (98-107) mmol/L Carbon Dioxide 25 (21-32) mmol/L Anion Gap 7 (3-11) BUN 7 (6-23) mg/dl Creatinine 0.57 L (0.6-1.2) mg/dl Est Cr Clr Drug Dosing 132.5 ml/min Est GFR ( Amer) 128.9 ml/min Est GFR (Non-Af Amer) 111.2 ml/min BUN/Creatinine Ratio 12.3 (10-20) Glucose 104 H (70-99(Fasting)) mg/dl Calcium 8.7 (8.5-10.1) mg/dl Total Bilirubin 0.4 (0.2-1.0) mg/dl AST 13 (13-39) U/L ALT 14 (7-52) U/L Alkaline Phosphatase 66 (34-104) U/L Total Protein 7.0 (6.0-8.3) gm/dl Albumin 4.2 (3.4-5.0) gm/dl Globulin 2.8 (2.5-4.0) gm/dl Albumin/Globulin Ratio 1.5 (0.9-2) Lipase 32 (11-82) U/L Urine Color Yellow Urine Appearance Clear (Clear) Urine pH 5.5 (4.5-7.5) Ur Specific [place] 1.013 (1.000-1.030) Urine Protein Negative (Negative) Urine Glucose (UA) Negative (Negative) Urine Ketones Negative (Negative) Urine Blood Negative (Negative) Urine Nitrite Negative (Negative) Urine Bilirubin Negative (Negative) Urine Urobilinogen Negative (Negative) Ur Leukocyte Esterase Negative (Negative) SARS-CoV-2, RNA, NAAT (NEGATIVE) 11/23/21 Range/Units 02:16 WBC (4.8-10.8) K/uL RBC (4.2-5.4) M/uL Hgb (12.0-16.0) g/dL Hct (37-47) % MCV (80-100) fL MCH (25-34) pg MCHC (32-36) g/dL RDW Std Deviation (36.4-46.3) fL RDW Coeff of Geovanna (11.5-14.5) % Plt Count (130-400) K/uL MPV (7.4-10.4) fL Immature Gran % (Auto) % Neut % (Auto) % Lymph % (Auto) % [place] % (Auto) % Eos % (Auto) % Baso % (Auto) % Neut # (Auto) (1.4-6.5) K/uL Lymph # (Auto) (1.2-3.4) K/uL [place] # (Auto) (0.11-0.59) K/uL Eos # (Auto) (0-0.5) K/uL Baso # (Auto) (0-0.2) K/uL Immature Gran # (Auto) (0.00-0.02) K/uL Sodium (136-145) mmol/L Potassium (3.5-5.1) mmol/L Chloride (98-107) mmol/L Carbon Dioxide (21-32) mmol/L Anion Gap (3-11) BUN (6-23) mg/dl Creatinine (0.6-1.2) mg/dl Est Cr Clr Drug Dosing ml/min Est GFR ( Amer) ml/min Est GFR (Non-Af Amer) ml/min BUN/Creatinine Ratio (10-20) Glucose (70-99(Fasting)) mg/dl Calcium (8.5-10.1) mg/dl Total Bilirubin (0.2-1.0) mg/dl AST (13-39) U/L ALT (7-52) U/L Alkaline Phosphatase (34-104) U/L Total Protein (6.0-8.3) gm/dl Albumin (3.4-5.0) gm/dl Globulin (2.5-4.0) gm/dl Albumin/Globulin Ratio (0.9-2) Lipase (11-82) U/L Urine Color Urine Appearance (Clear) Urine pH (4.5-7.5) Ur Specific [place] (1.000-1.030) Urine Protein (Negative) Urine Glucose (UA) (Negative) Urine Ketones (Negative) Urine Blood (Negative) Urine Nitrite (Negative) Urine Bilirubin (Negative) Urine Urobilinogen (Negative) Ur Leukocyte Esterase (Negative) SARS-CoV-2, RNA, NAAT NEGATIVE (NEGATIVE) Imaging Data Radiologist's Impression: Preliminary Findings Only See Final Report For Complete Findings CT ABDOMEN & PELVIS Without Contrast: Comparison: 10/20/2021. Descending colonic diverticulitis. Clear lung bases. Normal cardiac size. Normal abdominal viscera. Normal sto mach. Nonspecific small bowel. Normal appendix. Diverticulosis throughout the descending colon and sigmoid. There is stranding/inflammation with thickening of the wall throughout the inferior aspe ct of the descending colon where there are diverticuli, a combination of findings consistent with diverticulitis. No abscess. No signs of bowel obstruction. Retroflexed uterus. Normal urinary bladder. Normal bony structures. MDM Narrative Physical exam and history were performed. Nursing notes, EMR, and Medication List were personally reviewed. Patient appears to have low abdominal pain bringing her to the ER. She has a fairly complicated history of diverticulitis and is on Humira. She is tachycardic without distinct fever here in the ER. IV access was established and labs were obtained. She was hydrated with normal saline and given IV morphine and IV Zofran for comfort. Patient was sent to CT scan for further evaluation of her symptoms. Patient's blood work is as above and was reviewed. She does not have an elevated white blood cell count. She is without significant anemia or gross electrolyte imbalance. Transaminases are not diagnostic. Urine is without evidence of infection. Covid swab was performed and negative. CT scan was reviewed by myself and radiology. The patient appears to have acute diverticulitis without abscess or perforation on imaging. I did reach out to the patient's sink cutter, Dr. 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 The concern is the patient is on a biologic which will increase h er risk for infection. She has had multiple recurrent infections, and she now has acute diverticulitis despite having normal colonoscopy only a few days ago. Recommendation was for inpatient evaluation with IV antibiotics. I did start the patient on Unasyn and give her IV Tylenol for additional symptom control. Overall the case was discussed with the on-call hospitalist who agreed to evaluate the patient here in the ER. Please see their dictation for further patient course, plan, and disposition. The chart was completed utilizing [employer] Voice Recognition Software. Grammatical errors, random word insertions, pronoun errors, and incomplete sentences are an occasional consequence of this system due to software limitations, ambient noise, and hardware issues. Any formal questions or concerns about the content, text, or information contained within the body of this dictation should be directly addressed to the provider for clarification. . Impression & Plan Acute diverticulitis, Adalimumab (Humira) long-term use, Left sided abdominal pain Discharge Plan Visit Data Chief Complaint: Abdominal Pain Stated Complaint: R SIDE ABD PAIN RADIATING INTO BACK AND LEG ED Provider: Muna Gardiner ED Midlevel Provider: Lionel Sahu Discharge Problem: Acute diverticulitis, Adalimumab (Humira) long-term use, Left sided abdominal pain Forms Stand Alone Forms: linkedFA Prescriptions Prescriptions: No Action sumatriptan [Imitrex] 20 mg/actuation spray,non-aerosol 20 mg INTNAS Q2H PRN (Reason: migraine headache) Qty: 6 RF: 3 ergocalciferol (vitamin D2) [Vitamin D2] 1,250 mcg (50,000 unit) capsule 1,250 mcg PO WK Qty: 12 RF: 0 multivitamin Tablet 1 tab PO QAM RF: 0 Humira Pen 40 mg/0.8 mL Pen Injector Kit 40 mg SUBCUT UD RF: 0 cyclobenzaprine 5 mg tablet 5 mg PO UD PRN (Reason: muscle spasm) RF: 0 oxycodone-acetaminophen 5-325 mg tablet 1 tab PO Q6 PRN (Reason: Pain) RF: 0 Referrals Referrals: Jhonny Pereira MD [Primary Care Provider] -
[2021-11-23] MEDS ORDERED: MoRPHine SULFATE 4 MG/ML 1 ML CARP\\VIAL IV STA (05:22)
--- NOTE | 2021-11-23 05:25 | Billing Data ---
Date of Service November 23, 2021 Coding Level of Care Code INT OBSERVATION CARE 70M LVL 3
[2021-11-23] MEDS ORDERED: AMPICILLIN/SULBACTAM SOD 3,000 MG in 0.9 % SODIUM CHLORIDE 100 ML IV SCH (08:00)
--- NOTE | 2021-11-23 09:43 | CT Scan Report ---
CT abd pelvis wo con CLINICAL HISTORY: LLQ abd pain. Hx divertic. Recent scope 5d ago TECHNIQUE: Helical axial images of the abdomen and pelvis were obtained. Automated dose lowering tech niques and/or adjustment according to patient size were utilized for this exam. This exam was perfor med without intravenous contrast. COMPARISON: Comparison is made to CT abdomen pelvis 10/20/2021 FINDINGS: Lower chest: No acute abnormality Liver: Unremarkable. No focal lesions are seen. Gallbladder and biliary tree: No calcified gallstones. Normal caliber wall. No intra- or extrahepatic biliary ductal dilation. Pancreas: Unremarkable, no focal lesions. Spleen: Unremarkable. Adrenals: Unremarkable. Kidneys and ureters: Unremarkable. Bladder: Unremarkable. Reproductive organs: Uterus is retroverted. Bowel: Scattered diverticula are seen. There is bowel wall thickening and fat stranding about the pro ximal sigmoid colon and distal descending colon. No evidence of perforation or abscess is seen. The a ppendix is normal. Lymph nodes Retroperitoneal: Unremarkable. Mesenteric: Unremarkable. Pelvic: Unremarkable. Peritoneum: Normal. Vessels: Unremarkable. Abdominal wall: Unremarkable. Bones: Unremarkable. IMPRESSION: Findings are compatible with acute diverticulitis without evidence of perforation or abscess. ACT 112: Negative or not required by law. Electronically signed by: Pete Elizondo M.D. 11/23/2021 9:41 AM
[2021-11-23] MEDS ORDERED: ERGOCALCIFEROL 50,000 UNITS 1250 MCG CAP PO SCH (11:30)
[2021-11-23] MEDS: POTASSIUM CHLORIDE 20 MEQ in LACTATED RINGER'S 1,000 ML IV SCH ×2 (11:33→23:37)
[2021-11-23] MEDS ORDERED: MoRPHine SULFATE 10 MG/ML CARP/VIAL IV STA (11:47)
[2021-11-23] MEDS ORDERED: PROMETHAZINE HCL 12.5 MG in SODIUM CHLORIDE 0.9% 50 ML IV STA (11:47)
[2021-11-23] MEDS ORDERED: PIPERACILL/TAZOBAC CONSULT ACTIVE PRN (11:48)
[2021-11-23] MEDS ORDERED: ACETAMINOPHEN 1,000 MG/100 ML VIAL IV PRN (12:03)
--- NOTE | 2021-11-23 12:04 | Hospitalist Progress Note ---
Date of Service November 23, 2021 Assessment & Plan (1) Sigmoid diverticulitis: Plan: 46-year-old female with a past medical history of diverticulitis, positive HARMONY on Humira, Meryl-Danlos polyarthropathy and hemorrhoids presents for evaluation of abdominal pain diagnosed with diverticulitis. --> Aug 30 with CTA/P with acute diverticulitis mid descending colon. Repeat CT 10/20 with interval resolution. Underwent C-scope 11/[address] Chen. 4mm hyperplastic polyp removed. Had completed month long course Cipro/Flagyl followed by Augmentin Doing well, then developed worsening abdominal pain, nausea and presented to ER where CT was performed which was consistent with acute diverticulitis. bowel wall thickening and fat stranding about the proximal sigmoid colon and distal descending colon. No abscess or perforation noted Placed on Unasyn on admission, will switch to Zosyn Continue NPO Added LR @ 80cc/hr +20meq K for maintenance fluids. Check Mag. Keep K>4, mag>2 GI on consult -- appreciate assistance Morphine prn pain -- 6mg IV x 1, decreased frequency to Q2H as wearing off quickly. ?NSAIDs if needed --> Also added IV tyelnol Q8H prn headache/fever/pain Zofran prn nausea but will add Phenergan given issues with pain medications Encourage ambulation Continue to monitor/supportive care/electrolyte replacement as needed Of note, she has been in contact with Dr Fry from general surgery for likely eventual need for resection. Consult if needed as they are aware of patient. (2) History of diverticulitis: Plan: earlier this year. approx 1-2 bouts/year per patient, now more frequent as above rec'd gen surgery f/u (3) Positive HARMONY (antinuclear antibody): Plan: Hx Meryl-Danlos syndrome, positive HARMONY, polyarthropathy Chronic problems -Pain management as above -Hold Humira F/u [place] with her regular Hospitalist Physician (4) Polyarthropathy or polyarthritis of multiple sites: Plan: f/u rheum. humira on hold currently (5) Irritable bowel syndrome: Plan: Potentially contributing to presentation Monitor for signs of constipation Encourage ambulation as pain control achieved (6) Abdominal pain: Plan: 2nd to above also with hx Migraines, on sumatriptan. On hold. --> will order IV tylenol as needed for pain/headache. No migraine but does have headache at present Plan: SCDs for DVT prophylaxis for now Admission and Anticipated Discharge Date Admission Date: November 23, 2021 Supervising Physician Co-Signing Physician Notes PA Supervision Note: I did not personally see or examine the patient today, but I verified all [place]on points of JIA Newman's assessment and plan with the following exceptions/additions: None Subjective BRIDGE NOTE: ADMIT AFTER MIDNIGHT Patient evaluated around lunch. Abdomianl pain present, creeping back up. Morphine effective at taking the edge off but still present. GOt zofran for nausea but now with mild headache. Declined need for tylenol but could be from the zofran. She states she does get nauseated with pain medications as given in the past. She note no further BM at this time. Pain located to her LLQ and LUQ. She notes she had been getting bouts 1-2x/year but the most recent in August and current have been her worst yet. She has been in contact with Dr Fry from general surgery and is looking into surgical options in the near future given increasing recurrence/more frequent time between episodes. Has been on Humira for a couple of months for her +HARMONY/polyarthritis and follows with Rheumatology in [place]. Also with [facility]. Review of Systems Review of Systems: All systems reviewed & are unremarkable except as noted in HPI & below Physical Exam Physical Exam: WD/WN female laying in bed, minimally uncomfortable but no acute distress HEENT: mm slightly dry, trachea midline without deviation RESP: CTAB, no w/c/r, on room air CV: RRR, no edema GI: +BS, generalized tenderness to palpation however increased tenderness LUQ/LLQ, no rigidity, voluntary guarding at times : no [place] Psych: aox3, cooperative Neuro: CN intact, no focal deficit, speech clear and answering questions appropriately Results & Data Results & Data ([facility]) Vital Signs (Past 12 Hours) Vital Signs Temp Pulse Pulse Resp BP Pulse Ox 11/23/21 10:40 36.9 C 97 H 14 115/73 98 11/23/21 08:30 37 C 68 16 116/79 99 11/23/21 06:00 68 18 131/87 97 11/23/21 05:00 76 18 131/74 97 11/23/21 04:00 37.5 C 67 18 136/84 97 11/23/21 02:00 81 18 138/74 99 11/22/21 23:56 37.7 C H 119 H 18 136/84 97 Laboratory Results 11/23/21 11/23/21 11/23/21 Range/Units 02:16 00:24 00:24 WBC (4.8-10.8) K/uL RBC (4.2-5.4) M/uL Hgb (12.0-16.0) g/dL Hct (37-47) % MCV (80-100) fL MCH (25-34) pg MCHC (32-36) g/dL RDW Std Deviation (36.4-46.3) fL RDW Coeff of Geovanna (11.5-14.5) % Plt Count (130-400) K/uL MPV (7.4-10.4) fL Immature Gran % (Auto) % Neut % (Auto) % Lymph % (Auto) % [place] % (Auto) % Eos % (Auto) % Baso % (Auto) % Neut # (Auto) (1.4-6.5) K/uL Lymph # (Auto) (1.2-3.4) K/uL [place] # (Auto) (0.11-0.59) K/uL Eos # (Auto) (0-0.5) K/uL Baso # (Auto) (0-0.2) K/uL Immature Gran # (Auto) (0.00-0.02) K/uL Sodium 136 (136-145) mmol/L Potassium 3.6 (3.5-5.1) mmol/L Chloride 104 (98-107) mmol/L Carbon Dioxide 25 (21-32) mmol/L Anion Gap 7 (3-11) BUN 7 (6-23) mg/dl Creatinine 0.57 L (0.6-1.2) mg/dl Est Cr Clr Drug Dosing 132.5 ml/min Est GFR ( Amer) 128.9 ml/min Est GFR (Non-Af Amer) 111.2 ml/min BUN/Creatinine Ratio 12.3 (10-20) Glucose 104 H (70-99(Fasting)) mg/dl Calcium 8.7 (8.5-10.1) mg/dl Total Bilirubin 0.4 (0.2-1.0) mg/dl AST 13 (13-39) U/L ALT 14 (7-52) U/L Alkaline Phosphatase 66 (34-104) U/L Total Protein 7.0 (6.0-8.3) gm/dl Albumin 4.2 (3.4-5.0) gm/dl Globulin 2.8 (2.5-4.0) gm/dl Albumin/Globulin Ratio 1.5 (0.9-2) Lipase 32 (11-82) U/L Urine Color Yellow Urine Appearance Clear (Clear) Urine pH 5.5 (4.5-7.5) Ur Specific [place] 1.013 (1.000-1.030) Urine Protein Negative (Negative) Urine Glucose (UA) Negative (Negative) Urine Ketones Negative (Negative) Urine Blood Negative (Negative) Urine Nitrite Negative (Negative) Urine Bilirubin Negative (Negative) Urine Urobilinogen Negative (Negative) Ur Leukocyte Esterase Negative (Negative) SARS-CoV-2, RNA, NAAT NEGATIVE (NEGATIVE) 11/23/21 Range/Units 00:24 WBC 9.03 (4.8-10.8) K/uL RBC 4.60 (4.2-5.4) M/uL Hgb 13.6 (12.0-16.0) g/dL Hct 40.3 (37-47) % MCV 87.6 (80-100) fL MCH 29.6 (25-34) pg MCHC 33.7 (32-36) g/dL RDW Std Deviation 42.3 (36.4-46.3) fL RDW Coeff of Geovanna 13.3 (11.5-14.5) % Plt Count 249 (130-400) K/uL MPV 12.3 H (7.4-10.4) fL Immature Gran % (Auto) 0.2 % Neut % (Auto) 71.3 % Lymph % (Auto) 16.6 % [place] % (Auto) 10.9 % Eos % (Auto) 0.8 % Baso % (Auto) 0.2 % Neut # (Auto) 6.44 (1.4-6.5) K/uL Lymph # (Auto) 1.50 (1.2-3.4) K/uL [place] # (Auto) 0.98 H (0.11-0.59) K/uL Eos # (Auto) 0.07 (0-0.5) K/uL Baso # (Auto) 0.02 (0-0.2) K/uL Immature Gran # (Auto) 0.02 (0.00-0.02) K/uL Sodium (136-145) mmol/L Potassium (3.5-5.1) mmol/L Chloride (98-107) mmol/L Carbon Dioxide (21-32) mmol/L Anion Gap (3-11) BUN (6-23) mg/dl Creatinine (0.6-1.2) mg/dl Est Cr Clr Drug Dosing ml/min Est GFR ( Amer) ml/min Est GFR (Non-Af Amer) ml/min BUN/Creatinine Ratio (10-20) Glucose (70-99(Fasting)) mg/dl Calcium (8.5-10.1) mg/dl Total Bilirubin (0.2-1.0) mg/dl AST (13-39) U/L ALT (7-52) U/L Alkaline Phosphatase (34-104) U/L Total Protein (6.0-8.3) gm/dl Albumin (3.4-5.0) gm/dl Globulin (2.5-4.0) gm/dl Albumin/Globulin Ratio (0.9-2) Lipase (11-82) U/L Urine Color Urine Appearance (Clear) Urine pH (4.5-7.5) Ur Specific [place] (1.000-1.030) Urine Protein (Negative) Urine Glucose (UA) (Negative) Urine Ketones (Negative) Urine Blood (Negative) Urine Nitrite (Negative) Urine Bilirubin (Negative) Urine Urobilinogen (Negative) Ur Leukocyte Esterase (Negative) SARS-CoV-2, RNA, NAAT (NEGATIVE) Diagnostic Findings Abdomen/Pelvis CT 11/22/21 23:54 CT abd pelvis wo con CLINICAL HISTORY: LLQ abd pain. Hx divertic. Recent scope 5d ago TECHNIQUE: Helical axial images of the abdomen and pelvis were obtained. Automated dose lowering techniques and/or adjustment according to patient size were utilized for this exam. This exam was performed without intravenous contrast. COMPARISON: Comparison is made to CT abdomen pelvis 10/20/2021 FINDINGS: Lower chest: No acute abnormality Liver: Unremarkable. No focal lesions are seen. Gallbladder and biliary tree: No calcified gallstones. Normal caliber wall. No intra- or extrahepatic biliary ductal dilation. Pancreas: Unremarkable, no focal lesions. Spleen: Unremarkable. Adrenals: Unremarkable. Kidneys and ureters: Unremarkable. Bladder: Unremarkable. Reproductive organs: Uterus is retroverted. Bowel: Scattered diverticula are seen. There is bowel wall thickening and fat stranding about the proximal sigmoid colon and distal descending colon. No evidence of perforation or abscess is seen. The appendix is normal. Lymph nodes Retroperitoneal: Unremarkable. Mesenteric: Unremarkable. Pelvic: Unremarkable. Peritoneum: Normal. Vessels: Unremarkable. Abdominal wall: Unremarkable. Bones: Unremarkable. IMPRESSION: Findings are compatible with acute diverticulitis without evidence of perforation or abscess. ACT 112: Negative or not required by law. Electronically signed by: Pete Elizondo M.D. 11/23/2021 9:41 AM PG Care Time/CCT Total # of Minutes Spent Total Time Spent with Patient: Total time spent is greater than 50% in coordination of care (as documented) at patient's floor/unit and/or counseling patient: Coding Level of Care Code None Diagnoses History of diverticulitis Z87.19 Positive HARMONY (antinuclear antibody) R76.8 Polyarthropathy or polyarthritis of multiple sites M13.0 Irritable bowel syndrome K58.9 Sigmoid diverticulitis K57.32 Abdominal pain R10.9
[2021-11-23] MEDS ORDERED: PIPERACILLIN/TAZOBACTAM 4.5 GM in DEXTROSE 5% 100 ML IV ONE (12:30)
[2021-11-23] MEDS: MULTIVITAMIN TAB PO SCH (12:39)
--- NOTE | 2021-11-23 15:17 | Gastrointestinal Consultation ---
Date of Consultation November 23, 2021 Assessment & Plan (1) Acute diverticulitis: Continue IV Abx as per primary team. Discussed with Dr. Mcneill about changing to Zosyn therapy Recommend surgery consult with Dr. Fry, as she has seen him in the recent past for this issue. I do not believe she has any immediate surgical needs, however, she may need a surgical resection of the sigmoid colon, due to recurrent diverticulitis in the near future, once this acute issue has resolved. Continue clear liquid diet for now, and eventually advance to low fiber diet as tolerated I will follow her clinical course and make further recommendations as needed. History of Present Illness Reason for Consultation: Acute Diverticulitis Attending Physician: Juanita Rodriguez DO History of Present Illness Jose M Sabillon is a 46 yo CF who presented to the ER late last night with complaints of LLQ abdominal pain similar to pain she had experienced with diverticulitis. In fact, she has been seen by Dr. Fry on multiple occasions since August of 2021, with recurrent diverticulitis. She did undergo a colonoscopy last , and was noted to have a hyperplastic polyp in the sigmoid colon, diverticulosis and internal hemorrhoids. She had previously had been on a prolonged course of Augmentin, as well as Cipro/Flagyl therapy, however, upon arrival to the ER last night she underwent a CT scan of the Abd/pelvis, and was noted to have uncomplicated acute diverticulitis in the sigmoid colon. Of note, she does take Humira therapy for Rheumatoid arthritis. I spoke to the ER team early this AM and recommended IV antibiotic therapy and admission due to failed outpatient therapy. She was subsequently admitted and placed on IV Unasyn, given analgesic therapy and IVF. At the time I saw her today, she has had little improvement. She continues to complain of LLQ abdominal pain. She does think it has improved slightly, now 2/10 in intensity, non-radiating without alleviating or exacerbating factors. She denies any fevers, chills, nausea, vomiting, diarrhea, hematemesis, melena or hematochezia, and has no further complaints. Allergies Allergy/AdvReac Type Severity Reaction Status Date / Time No Known Allergies Allergy Verified 11/23/21 01:31 Home Medications Medication Instructions Recorded Confirmed Type multivitamin 1 tab PO QAM 11/25/20 11/23/21 History sumatriptan 20 mg/actuation nasal 20 mg INTNAS Q2H PRN #6 ea 07/10/21 11/23/21 Rx spray (Imitrex) adalimumab 40 mg/0.8 mL 40 mg SUBCUT UD 08/25/21 11/23/21 History subcutaneous pen kit (Humira Pen) cyclobenzaprine 5 mg tablet 5 mg PO UD PRN 08/25/21 11/23/21 History ergocalciferol (vitamin D2) 1,250 1,250 mcg PO WK #12 cap 10/01/21 11/23/21 Rx mcg (50,000 unit) capsule (Vitamin D2) oxycodone-acetaminophen 5 mg-325 1 tab PO Q6 PRN 11/23/21 11/23/21 History mg tablet Patient History Medical History Meryl-Danlos syndrome, type 3 HYPERMOBILITY PER PT History of diverticulitis History of migraine headaches Internal hemorrhoids Rheumatoid arthritis Vitamin D deficiency Surgical History History of breast biopsy L-BENIGN History of colonoscopy History of hip surgery (~07/20/19) left & right trochanteric bursa excision History of tooth extraction WISDOM TEETH Hx of elbow surgery RT/LEFT Hx of lumpectomy LEFT S/P LEEP hx Family History Mother Arthritis Migraine headache Other No family history of adverse response to anesthesia Denies family history of Ovarian cancer Prostate cancer Myocardial infarction Breast cancer Colorectal cancer Social History Smoking Status: Never smoker Second Hand Exposure: No; Hx Alcohol Use: No Hx Substance Use: No Preferred Language: British Communication Ability: Effective Ring Conductor Required: No Beliefs That Will Affect Care: None marital status: Current Living Situation: Family Current Living Situation Comment: Lives with and 2 kids current occupational status: employed 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 How many Children do You have: 2 Feels Safe at Home: Yes Childhood Exposure to Second-Hand Smoke: No during the past year weight has: remained stable Dental Care, Regularly: Yes Physical Activity Frequency: 5-6 Times per Week Seatbelt Use: always Sunscreen Use: Yes Gender Identity: Female Assistive Devices: Contacts Review of Systems Constitutional: as per Subjective / HPI Eyes: as per Subjective / HPI Ear, Nose, Mouth, Throat: as per Subjective / HPI Respiratory: as per Subjective / HPI Cardiovascular: as per Subjective / HPI Gastrointestinal: as per Subjective / HPI Musculoskeletal: as per Subjective / HPI Integumentary: as per Subjective / HPI Neurologic: as per Subjective / HPI Psychiatric: as per Subjective / HPI Endocrine: as per Subjective / HPI Hematologic / Lymphatic: as per Subjective / HPI Allergy / Immunological: as per Subjective / HPI Physical Exam Constitutional: WD/WN, vitals as above Respiratory: normal respiratory effort, lungs clear to auscultation Cardiovascular: RRR, no murmur, no edema Gastrointestinal (Abdomen): Inspection/Auscultation: abdomen normal to inspe ction and normal bowel sounds; abdomen not distended Percussion/Palpation: + abdomen tender (LLQ) and abdomen soft; no guarding and abdomen not rigid Skin: no rashes, warm and dry Psychiatric: A+Ox3, euthymic affect Results & Data ([facility]) Vital Signs (Past 12 Hours) Vital Signs Temp Pulse Pulse Resp BP Pulse Ox 11/23/21 15:01 37.1 C 89 14 107/71 99 11/23/21 10:40 36.9 C 97 H 14 115/73 98 11/23/21 08:30 37 C 68 16 116/79 99 11/23/21 06:00 68 18 131/87 97 11/23/21 05:00 76 18 131/74 97 11/23/21 04:00 37.5 C 67 18 136/84 97 PG Care Time/CCT Total # of Minutes Spent Total Time Spent with Patient: Total time spent is greater than 50% in coordination of care (as documented) at patient's floor/unit and/or counseling patient: Coding Level of Care Code 76971 Inpt Consult Level 3 Diagnoses Acute diverticulitis K57.92
[2021-11-23] MEDS: MAGNESIUM SULFATE / D5W 1 GM/100 ML BAG IV SCH ×2 (17:20→19:24)
[2021-11-23] MEDS: PIPERACILLIN/TAZOBACTAM 3.375 GM in DEXTROSE 5% 100 ML IV SCH (17:31)
[2021-11-23] MEDS: PROMETHAZINE HCL 6.25 MG in SODIUM CHLORIDE 0.9% 50 ML IV PRN (19:53)
[2021-11-23] MEDS: MoRPHine SULFATE 4 MG/ML 1 ML CARP\\VIAL IV PRN (19:54)
[2021-11-24] MEDS ORDERED: Flu Vaccine (Fluarix) 0.5mL SYR (Standard Dose) IM ONE (01:30)
[2021-11-24] MEDS: PIPERACILLIN/TAZOBACTAM 3.375 GM in DEXTROSE 5% 100 ML IV SCH ×3 (02:03→18:11)
[2021-11-24 06:39] LABS: Basophils # (auto) 0.02 K/uL (0-0.2); Basophils % (auto) 0.3 %; Eosinophils # (auto) 0.12 K/uL (0-0.5); Eosinophils % (auto) 2.1 %; Hematocrit (blood only) 35.4 % (37-47); Hemoglobin 11.9 g/dL (12.0-16.0); Immature Granulocytes # (auto) 0.01 K/uL (0.00-0.02); Immature Granulocytes % (auto) 0.2 %; Lymphocytes % (auto) 27.7 %; Mean Corpuscular Hemoglobin 29.8 pg (25-34); Mean Corpuscular Hgb Conc 33.6 g/dL (32-36); Mean Corpuscular Volume 88.7 fL (80-100); Mean Platelet Volume 11.9 fL (7.4-10.4); Monocytes # (auto) 0.38 K/uL (0.11-0.59); Monocytes % (auto) 6.6 %; Neutrophils # (auto) 3.64 K/uL (1.4-6.5); Neutrophils % (auto) 63.1 %; Platelet Count 227 K/uL (130-400); RDW Coefficient of Variation 13.1 % (11.5-14.5); RDW Standard Deviation 42.9 fL (36.4-46.3); Red Blood Count 3.99 M/uL (4.2-5.4); White Blood Count 5.77 K/uL (4.8-10.8)
[2021-11-24 07:09] LABS: Albumin Globulin Ratio 1.5 (0.9-2); Albumin Level 3.5 gm/dl (3.4-5.0); Bilirubin,Total 0.8 mg/dl (0.2-1.0); Calcium 8.3 mg/dl (8.5-10.1); Creatinine Clr Calc Pharmacy 150.7 ml/min; Est GFR (African American) 134.5 ml/min; Est GFR (Non-African American) 116.1 ml/min; Globulin 2.4 gm/dl (2.5-4.0); Magnesium 1.9 mg/dl (1.7-2.4); Total Protein 5.9 gm/dl (6.0-8.3)
[2021-11-24] MEDS: MULTIVITAMIN TAB PO SCH (09:33)
--- NOTE | 2021-11-24 09:34 | Surgery Consultation ---
Date of Consultation November 24, 2021 Assessment & Plan (1) Acute diverticulitis: We do long discussion today. We have had multiple discussions regarding her diverticulitis in the past. Certainly she has had multiple recurrent episodes in a relatively short period of time. However the symptoms clinically and even radiographically have been relatively mild. She has no leukocytosis and no fever. Her being on Humira adds another complicating factor in regards to proceeding with surgery. Nonetheless at her young age and multiple recurrent bouts we may need to consider elective resection of her sigmoid and distal descending colon at some point in the future. Since this is her first bout requiring admission I think we should aggressively treat this with bowel rest and IV antibiotics for several days. Once we get her asymptomatic we may monitor her for several months. I will see if the diverticulitis recurs within this year we may be forced to do something electively. Perhaps we undertreated her previously as an outpatient with oral antibiotics. I will continue to follow her during her inpatient stay. She did have a recent colonoscopy. The minimum time frame for performing surgery would be 8 weeks however I believe we should monitor her to see how she does over the next 6 to 12 months prior to considering surgery. She agrees with this plan. (2) Adalimumab (Humira) long-term use: (3) History of diverticulitis: (4) Positive HARMONY (antinuclear antibody): (5) Polyarthropathy or polyarthritis of multiple sites: History of Present Illness Attending Physician: Kary Mcneill MD History of Present Illness 46-year-old female well-known to me. Seen her multiple times as an outpatient. This is her first inpatient admission for acute diverticulitis. She is feeling somewhat better than when she came in however she continued to have left lower quadrant pain. She is tolerating liquids at this point without difficulty although she has no appetite. Allergies Allergy/AdvReac Type Severity Reaction Status Date / Time No Known Allergies Allergy Verified 11/23/21 01:31 Home Medications Medication Instructions Recorded Confirmed Type multivitamin 1 tab PO QAM 11/25/20 11/23/21 History sumatriptan 20 mg/actuation nasal 20 mg INTNAS Q2H PRN #6 ea 07/10/21 11/23/21 Rx spray (Imitrex) adalimumab 40 mg/0.8 mL 40 mg SUBCUT UD 08/25/21 11/23/21 History subcutaneous pen kit (Humira Pen) cyclobenzaprine 5 mg tablet 5 mg PO UD PRN 08/25/21 11/23/21 History ergocalciferol (vitamin D2) 1,250 1,250 mcg PO WK #12 cap 10/01/21 11/23/21 Rx mcg (50,000 unit) capsule (Vitamin D2) oxycodone-acetaminophen 5 mg-325 1 tab PO Q6 PRN 11/23/21 11/23/21 History mg tablet Patient History Medical History Meryl-Danlos syndrome, type 3 HYPERMOBILITY PER PT History of diverticulitis History of migraine headaches Internal hemorrhoids Rheumatoid arthritis Vitamin D deficiency Surgical History History of breast biopsy L-BENIGN History of colonoscopy History of hip surgery (~07/20/19) left & right trochanteric bursa excision History of tooth extraction WISDOM TEETH Hx of elbow surgery RT/LEFT Hx of lumpectomy LEFT S/P LEEP hx Family History Mother Arthritis Migraine headache Other No family history of adverse response to anesthesia Denies family history of Ovarian cancer Prostate cancer Myocardial infarction Breast cancer Colorectal cancer Social History Smoking Status: Never smoker Second Hand Exposure: No; Hx Alcohol Use: No Hx Substance Use: No Preferred Language: [place] Communication Ability: Effective Weight Training Instructor Required: No Beliefs That Will Affect Care: None marital status: Current Living Situation: Family Current Living Situation Comment: Lives with and 2 kids current occupational status: employed 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 How many Children do You have: 2 Feels Safe at Home: Yes Childhood Exposure to Second-Hand Smoke: No during the past year weight has: remained stable Dental Care, Regularly: Yes Physical Activity Frequency: 5-6 Times per Week Seatbelt Use: always Sunscreen Use: Yes Gender Identity: Female Assistive Devices: Contacts Review of Systems Review of Systems: All systems reviewed & are unremarkable except as noted in HPI & below Physical Exam Constitutional: WD/WN, vitals as above no acute distress and not ill appearing Eyes: PERRL, conjunctivae normal, anicteric sclerae EOM intact bilaterally ENMT: external ear and nose normal, oropharynx normal Ears: no hearing impairment Neck: trachea midline, no thyromegaly Respiratory: normal respiratory effort; no respiratory distress and does not use accessory muscles Cardiovascular: Rate/Rhythm: regular rate and regular rhythm Gastrointestinal (Abdomen): Soft. Positive left lower quadrant tenderness with some mild guarding. There are no peritoneal signs. Skin: no rashes, warm and dry Psychiatric: Orientation: alert, oriented x 3 and cooperative Results & Data ([facility]) Vital Signs (Past 12 Hours) Vital Signs Temp Pulse Resp BP Pulse Ox 11/24/21 07:08 36.8 C 82 14 103/69 98 11/23/21 21:40 36.8 C 88 16 114/77 98 PG Care Time/CCT Total # of Minutes Spent Total Time Spent with Patient: Total time spent is greater than 50% in coordination of care (as documented) at patient's floor/unit and/or counseling patient: Coding Level of Care Code 78654 Inpt Consult Level 4 Diagnoses Acute diverticulitis K57.92 Adalimumab (Humira) long-term use Z79.899 History of diverticulitis Z87.19 Positive HARMONY (antinuclear antibody) R76.8 Polyarthropathy or polyarthritis of multiple sites M13.0
--- NOTE | 2021-11-24 09:47 | Gastroenterology Progress Note ---
Date of Service November 24, 2021 Assessment & Plan (1) Acute diverticulitis: Plan: -Continue IV Zosyn -Continue to monitor CBC, metabolic panel -Clear liquid diet for now; when pain improves, would plan to advance to a low- residue diet -Hold Metamucil during acute episode of diverticulitis -Appreciate surgery recommendations -Continue to monitor for clinical improvement Admission and Anticipated Discharge Date Admission Date: November 23, 2021 Supervising Physician Co-Signing Physician Notes I personally evaluated the patient and agree with the findings as documented by Marla Pierson, E[facility] Exam: Constitutional: WD/WN, vitals as above General: EOM intact bilaterally Neck: normal visual inspection Respiratory: normal respiratory effort, lungs clear to auscultation Cardiovascular: RRR, no murmur, no edema Gastrointestinal: abdomennormal to inspection, nondistended, soft,mild LLQ tenderness, no hepatosplenomegaly Musculoskeletal: no cyanosis, head normal to inspection Skin: no rashes, warm and dry Neurologic: moves all extremities Psychiatric: A and O x3, euthymic affect Subjective Patient is a 46 yo female who is currently admitted with sigmoid diverticulitis. She currently is on IV Zosyn therapy. WBC count is within normal limits at 5.77. H/H 11.9/35.4. She reports minimal improvement in her LLQ pain. She is tolerating clear liquids. She denies bowel movements. She reports that she saw general surgery this morning and the plan is to monitor conservatively. She denies any new complaints at present. Review of Systems Constitutional: no fever and no chills Gastrointestinal: + abdominal pain; no diarrhea/loose stools and no blood in stools Physical Exam Constitutional: well developed Respiratory: normal respiratory effort Gastrointestinal (Abdomen): Inspection/Auscultation: abdomen normal to inspection and normal bowel sounds Percussion/Palpation: + abdomen tender and abdomen soft Musculoskeletal: Head/Neck/Chest: normocephalic Psychiatric: Orientation: alert and oriented x 3 Results & Data Results & Data ([facility]) Vital Signs (Past 12 Hours) Vital Signs Temp Pulse Resp BP Pulse Ox 11/24/21 07:08 36.8 C 82 14 103/69 98 PG Care Time/CCT Total # of Minutes Spent Total Time Spent with Patient: Total time spent is greater than 50% in coordination of care (as documented) at patient's floor/unit and/or counseling patient: Coding Level of Care Code 61467 Subseq Hosp Care Lvl 3 Diagnoses Acute diverticulitis K57.92
[2021-11-24] MEDS: POTASSIUM CHLORIDE 20 MEQ in LACTATED RINGER'S 1,000 ML IV SCH (12:08)
--- NOTE | 2021-11-24 15:03 | Hospitalist Progress Note ---
Date of Service November 24, 2021 Assessment & Plan (1) Sigmoid diverticulitis: Plan: 46-year-old female with a past medical history of diverticulitis, positive HARMONY on Humira, Meryl-Danlos, inflammatory polyarthropathy on Humiram, and hemorrhoids presents for evaluation of abdominal pain diagnosed with recurrent diverticulitis. --> Aug [address] A/P with acute diverticulitis mid descending colon. Repeat CT 10/20 with interval resolution. Underwent C-scope 11/[address] Chen. 4mm hyperplastic polyp removed. Had completed month long course Cipro/Flagyl followed by Augmentin Doing well, then developed worsening abdominal pain, nausea and presented to ER where CT was performed which was consistent with acute diverticulitis. bowel wall thickening and fat stranding about the proximal sigmoid colon and distal descending colon. No abscess or perforation noted Improving but remains with pain in LLQ Afebrile, no leukocytosis -continue Zosyn -continue maintenance IV fluids -continue clears only for now until pain improving -keep Mag. Keep K>4, mag>2 -IV morphine prn pain -GI on consult -- appreciate assistance -appreciate SUrgery consult-try to hold off on elective resection given first need for inpatient hospitalization for diverticulitis -advised to continue to HOLD Humira until infection completely cleared (she never held before when had infection) (2) History of diverticulitis: Plan: earlier this year. approx 1-2 bouts/year per patient, now more frequent as above (3) Positive HARMONY (antinuclear antibody): Plan: Hx Meryl-Danlos syndrome, positive HARMONY, inflammatory polyarthropathy Chronic problems -Pain management as above -Hold Humira F/u Cristina with her regular Pipefitter (4) Polyarthropathy or polyarthritis of multiple sites: Plan: f/u rheum. humira on hold currently (5) Irritable bowel syndrome: Plan: Potentially contributing to presentation Monitor for signs of constipation Encourage ambulation as pain control achieved (6) Abdominal pain: Plan: 2nd to above Plan: SCDs for DVT prophylaxis for now Dispo-continued stay Admission and Anticipated Discharge Date Admission Date: November 23, 2021 Subjective Still pain in LLQ even with laughing and movement, but overall improved. Feeling hungry. No nausea, no lightheadedness, no CP or SOB. Review of Systems Review of Systems: All systems reviewed & are unremarkable except as noted in HPI & below Physical Exam Constitutional: WD/WN, vitals as above Eyes: + anicteric sclerae Neck: trachea midline, no thyromegaly Respiratory: normal respiratory effort, lungs clear to auscultation Cardiovascular: RRR, no murmur, no edema Chest (Breasts): Chest: normal inspection of chest Gastrointestinal (Abdomen): Inspection/Auscultation: abdomen normal to inspection and normal bowel sounds; abdomen not distended Percussion/Palpation: + abdomen tender (LLQ w/o guarding or rebound) and abdomen soft Musculoskeletal: Extremities: extremities normal to inspection; no cyanosis and no clubbing Skin: no rashes, warm and dry Neurologic: moves all extremities and awake; no focal motor deficits Psychiatric: A+Ox3, euthymic affect Lymphatic: no lymphedema Results & Data Results & Data ([facility]) Vital Signs (Past 12 Hours) Vital Signs Temp Pulse Resp BP Pulse Ox 11/24/21 07:08 36.8 C 82 14 103/69 98 Laboratory Results 11/24/21 11/24/21 Range/Units 05:22 05:22 WBC 5.77 (4.8-10.8) K/uL RBC 3.99 L (4.2-5.4) M/uL Hgb 11.9 L (12.0-16.0) g/dL Hct 35.4 L (37-47) % MCV 88.7 (80-100) fL MCH 29.8 (25-34) pg MCHC 33.6 (32-36) g/dL RDW Std Deviation 42.9 (36.4-46.3) fL RDW Coeff of Geovanna 13.1 (11.5-14.5) % Plt Count 227 (130-400) K/uL MPV 11.9 H (7.4-10.4) fL Immature Gran % (Auto) 0.2 % Neut % (Auto) 63.1 % Lymph % (Auto) 27.7 % Lane % (Auto) 6.6 % Eos % (Auto) 2.1 % Baso % (Auto) 0.3 % Neut # (Auto) 3.64 (1.4-6.5) K/uL Lymph # (Auto) 1.60 (1.2-3.4) K/uL Lane # (Auto) 0.38 (0.11-0.59) K/uL Eos # (Auto) 0.12 (0-0.5) K/uL Baso # (Auto) 0.02 (0-0.2) K/uL Immature Gran # (Auto) 0.01 (0.00-0.02) K/uL Sodium 136 (136-145) mmol/L Potassium 4.0 (3.5-5.1) mmol/L Chloride 105 (98-107) mmol/L Carbon Dioxide 25 (21-32) mmol/L Anion Gap 6 (3-11) BUN 5 L (6-23) mg/dl Creatinine 0.50 L (0.6-1.2) mg/dl Est Cr Clr Drug Dosing 150.7 ml/min Est GFR ( Amer) 134.5 ml/min Est GFR (Non-Af Amer) 116.1 ml/min BUN/Creatinine Ratio 10.0 (10-20) Glucose 94 (70-99(Fasting)) mg/dl Calcium 8.3 L (8.5-10.1) mg/dl Magnesium 1.9 (1.7-2.4) mg/dl Total Bilirubin 0.8 (0.2-1.0) mg/dl AST 16 (13-39) U/L ALT 15 (7-52) U/L Alkaline Phosphatase 65 (34-104) U/L Total Protein 5.9 L (6.0-8.3) gm/dl Albumin 3.5 (3.4-5.0) gm/dl Globulin 2.4 L (2.5-4.0) gm/dl Albumin/Globulin Ratio 1.5 (0.9-2) PG Care Time/CCT Total # of Minutes Spent Total Time Spent with Patient: Total time spent is greater than 50% in coordination of care (as documented) at patient's floor/unit and/or counseling patient: Coding Level of Care Code 08032 Subseq Hosp Care Lvl 2 Diagnoses Sigmoid diverticulitis K57.32 History of diverticulitis Z87.19 Positive HARMONY (antinuclear antibody) R76.8 Polyarthropathy or polyarthritis of multiple sites M13.0 Irritable bowel syndrome K58.9 Abdominal pain R10.9
[2021-11-24] MEDS: LACTATED RINGER'S 1,000 ML IV SCH (15:23)
[2021-11-24] MEDS: MoRPHine SULFATE 4 MG/ML 1 ML CARP\\VIAL IV PRN (20:14)
[2021-11-24] MEDS: PROMETHAZINE HCL 6.25 MG in SODIUM CHLORIDE 0.9% 50 ML IV PRN (20:14)
[2021-11-25] MEDS: PIPERACILLIN/TAZOBACTAM 3.375 GM in DEXTROSE 5% 100 ML IV SCH ×3 (01:25→17:20)
[2021-11-25] MEDS: LACTATED RINGER'S 1,000 ML IV SCH (04:05)
[2021-11-25 06:54] LABS: Basophils # (auto) 0.02 K/uL (0-0.2); Basophils % (auto) 0.4 %; Eosinophils # (auto) 0.22 K/uL (0-0.5); Eosinophils % (auto) 4.6 %; Hematocrit (blood only) 34.7 % (37-47); Hemoglobin 11.9 g/dL (12.0-16.0); Immature Granulocytes # (auto) 0.01 K/uL (0.00-0.02); Immature Granulocytes % (auto) 0.2 %; Lymphocytes % (auto) 35.6 %; Mean Corpuscular Hgb Conc 34.3 g/dL (32-36); Mean Corpuscular Volume 87.4 fL (80-100); Mean Platelet Volume 11.5 fL (7.4-10.4); Monocytes # (auto) 0.46 K/uL (0.11-0.59); Monocytes % (auto) 9.6 %; Neutrophils # (auto) 2.37 K/uL (1.4-6.5); Neutrophils % (auto) 49.6 %; Platelet Count 218 K/uL (130-400); RDW Coefficient of Variation 12.9 % (11.5-14.5); RDW Standard Deviation 41.4 fL (36.4-46.3); Red Blood Count 3.97 M/uL (4.2-5.4); White Blood Count 4.78 K/uL (4.8-10.8)
[2021-11-25 07:15] LABS: Albumin Globulin Ratio 1.5 (0.9-2); Albumin Level 3.5 gm/dl (3.4-5.0); BUN Creatinine Ratio 7.5 (10-20); Bilirubin,Total 0.5 mg/dl (0.2-1.0); Calcium 8.6 mg/dl (8.5-10.1); Creatinine Clr Calc Pharmacy 112.5 ml/min; Est GFR (African American) 122.2 ml/min; Est GFR (Non-African American) 105.4 ml/min; Globulin 2.3 gm/dl (2.5-4.0); Magnesium 1.8 mg/dl (1.7-2.4); Potassium 3.8 mmol/L (3.5-5.1); Total Protein 5.8 gm/dl (6.0-8.3)
[2021-11-25] MEDS: MULTIVITAMIN TAB PO SCH (08:37)
--- NOTE | 2021-11-25 09:04 | Surgery Progress Note ---
Date of Service November 25, 2021 Assessment & Plan (1) Acute diverticulitis: Plan: Clinically improving. I agree with stopping the Humira. Considering the frequent recurrent nature of her diverticulitis I would consider keeping her 1 additional day. She could be discharged later today or tomorrow morning. I will need to follow-up with her in about 3 weeks to discuss plans going forward. I would continue a very light bland diet for the next several days even at home. (2) Adalimumab (Humira) long-term use: (3) Positive sm/CLEANER WINDOW antibody: Admission and Anticipated Discharge Date Admission Date: November 24, 2021 Subjective Patient seen. She is continue to slowly improve although she continues to have some left lower quadrant pain. Minimal appetite Physical Exam Constitutional: WD/WN, vitals as above no acute distress and not ill appearing Eyes: PERRL, conjunctivae normal, anicteric sclerae EOM intact bilaterally ENMT: external ear and nose normal, oropharynx normal Ears: no hearing impairment Neck: trachea midline, no thyromegaly Respiratory: normal respiratory effort; no respiratory distress and does not use accessory muscles Cardiovascular: Rate/Rhythm: regular rate and regular rhythm Gastrointestinal (Abdomen): Soft. Mild left lower quadrant tenderness. This is improved since admission. No peritoneal signs Skin: no rashes, warm and dry Psychiatric: Orientation: alert, oriented x 3 and cooperative Results & Data ([facility]) Vital Signs (Past 12 Hours) Vital Signs Temp Pulse Resp BP Pulse Ox 11/25/21 07:41 36.8 C 94 H 16 115/83 99 11/24/21 23:07 36.9 C 80 18 108/72 96 PG Care Time/CCT Total # of Minutes Spent Total Time Spent with Patient: Total time spent is greater than 50% in coordination of care (as documented) at patient's floor/unit and/or counseling patient: Coding Level of Care Code 02549 Subseq Hosp Care Lvl 2 Diagnoses Acute diverticulitis K57.92 Adalimumab (Humira) long-term use Z79.899 Positive sm/CLEANER WINDOW antibody R76.8
[2021-11-25] MEDS ORDERED: oxyCODONE/ACETAMINOPHEN 5mg/325mg TAB PO PRN (09:38)
[2021-11-25] MEDS ORDERED: ACETAMINOPHEN 325 MG TAB PO PRN (09:38)
--- NOTE | 2021-11-25 10:00 | Gastroenterology Progress Note ---
Date of Service November 25, 2021 Assessment & Plan (1) Acute diverticulitis: Plan: -Continue IV Zosyn -Clear liquid diet with plans to progress to low residue when patient feels improvement of her pain -Continue to monitor CBC -Supportive care per primary team Admission and Anticipated Discharge Date Admission Date: November 24, 2021 Supervising Physician Co-Signing Physician Notes I personally evaluated the patient and agree with the findings as documented by Marla Pierson, PAC Exam: Constitutional: WD/WN, vitals as above General: EOM intact bilaterally Neck: normal visual inspection Respiratory: normal respiratory effort, lungs clear to auscultation Cardiovascular: RRR, no murmur, no edema Gastrointestinal: abdomennormal to inspection, nondistended, soft, nontender, no hepatosplenomegaly Musculoskeletal: no cyanosis, head normal to inspection Skin: no rashes, warm and dry Neurologic: moves all extremities Psychiatric: A and O x3, euthymic affect advance diet as tolerated. pain control prn complete 10 day course of abx for diverticulitis. Subjective Patient is a 46 yo female with acute left sided diverticulitis. She is currently on IV Zosyn and clear liquid diet. She reports some improvement of her abdominal pain. No new symptoms at present. Review of Systems Constitutional: no fever and no chills Respiratory: no cough and no dyspnea Cardiovascular: no chest pain Gastrointestinal: + abdominal pain; no diarrhea/loose stools and no blood in stools Physical Exam Constitutional: well developed Cardiovascular: Rate/Rhythm: regular rate Gastrointestinal (Abdomen): Inspection/Auscultation: abdomen normal to inspection Percussion/Palpation: + abdomen tender and abdomen soft Musculoskeletal: Head/Neck/Chest: normocephalic Psychiatric: Orientation: alert and oriented x 3 Results & Data Results & Data ([facility]) Vital Signs (Past 12 Hours) Vital Signs Temp Pulse Resp BP Pulse Ox 11/25/21 07:41 36.8 C 94 H 16 115/83 99 11/24/21 23:07 36.9 C 80 18 108/72 96 PG Care Time/CCT Total # of Minutes Spent Total Time Spent with Patient: Total time spent is greater than 50% in coordination of care (as documented) at patient's floor/unit and/or counseling patient: Coding Level of Care Code 03818 Subseq Hosp Care Lvl 2 Diagnoses Acute diverticulitis K57.92
--- NOTE | 2021-11-25 13:34 | Hospitalist Progress Note ---
Date of Service November 25, 2021 Assessment & Plan (1) Sigmoid diverticulitis: Plan: 46-year-old female with a past medical history of diverticulitis, positive HARMONY on Humira, Meryl-Danlos, inflammatory polyarthropathy on Humiram, and hemorrhoids presents for evaluation of abdominal pain diagnosed with recurrent diverticulitis. --> Aug [address] A/P with acute diverticulitis mid descending colon. Repeat CT 10/20 with interval resolution. Underwent C-scope 11/[address] Chen. 4mm hyperplastic polyp removed. Had completed month long course Cipro/Flagyl followed by Augmentin Doing well, then developed worsening abdominal pain, nausea and presented to ER where CT was performed which was consistent with acute diverticulitis. bowel wall thickening and fat stranding about the proximal sigmoid colon and distal descending colon. No abscess or perforation noted Improving each day but remains with pain in LLQ although not as severe Afebrile, no leukocytosis No BM since admission -advance diet to low fiber today -continue Zosyn x 1 more day and then can likely be discharged to home on po abx--> previously Cipro/Flagyl made her quite nauseated--> suggest Augmentin XR 2000mg po bid x total 14 days upon discharge -dc maintenance IV fluids -IV morphine prn pain -GI on consult -- appreciate assistance -appreciate Surgery consult-try to hold off on elective resection given first need for inpatient hospitalization for diverticulitis -advised to continue to HOLD Humira until infection completely cleared (she never held before when had infection) -f/u with Surgery after discharge (2) History of diverticulitis: Plan: earlier this year. approx 1-2 bouts/year per patient, now more frequent as above (3) Positive HARMONY (antinuclear antibody): Plan: Hx Meryl-Danlos syndrome, positive HARMONY, inflammatory polyarthropathy Chronic problems -Pain management as above -Hold Humira F/u Cristina with her regular Rubber Flap Cutter (4) Polyarthropathy or polyarthritis of multiple sites: Plan: f/u rheum. humira on hold currently (5) Irritable bowel syndrome: Plan: Potentially contributing to presentation Monitor for signs of constipation Encourage ambulation as pain control achieved (6) Abdominal pain: Plan: 2nd to above slowly improving Plan: SCDs for DVT prophylaxis Dispo-continued stay, but hopeful for discharge to home tomorrow if continues to improve Admission and Anticipated Discharge Date Admission Date: November 24, 2021 Subjective Feeling a little less LLQ pain today, still low appetite but did eat a small amount of low fiber food. No BM yet. No other acute issues. Headache now resolved. Review of Systems 2 Review of Systems: All systems reviewed & are unremarkable except as noted in HPI & below Physical Exam Constitutional: WD/WN, vitals as above Eyes: + anicteric sclerae Neck: trachea midline, no thyromegaly Respiratory: normal respiratory effort, lungs clear to auscultation Cardiovascular: RRR, no murmur, no edema Chest (Breasts): Chest: normal inspection of chest Gastrointestinal (Abdomen): Inspection/Auscultation: abdomen normal to inspection and normal bowel sounds; abdomen not distended Percussion/Palpation: + abdomen tender (LLQ w/o guarding or rebound) and abdomen soft Musculoskeletal: Extremities: extremities normal to inspection; no cyanosis and no clubbing Skin: no rashes, warm and dry Neurologic: moves all extremities and awake; no focal motor deficits Psychiatric: A+Ox3, euthymic affect Lymphatic: no lymphedema Results & Data Results & Data ([facility]) Vital Signs (Past 12 Hours) Vital Signs Temp Pulse Resp BP Pulse Ox 11/25/21 07:41 36.8 C 94 H 16 115/83 99 Laboratory Results 11/25/21 11/25/21 Range/Units 06:43 06:43 WBC 4.78 L (4.8-10.8) K/uL RBC 3.97 L (4.2-5.4) M/uL Hgb 11.9 L (12.0-16.0) g/dL Hct 34.7 L (37-47) % MCV 87.4 (80-100) fL MCH 30.0 (25-34) pg MCHC 34.3 (32-36) g/dL RDW Std Deviation 41.4 (36.4-46.3) fL RDW Coeff of Geovanna 12.9 (11.5-14.5) % Plt Count 218 (130-400) K/uL MPV 11.5 H (7.4-10.4) fL Immature Gran % (Auto) 0.2 % Neut % (Auto) 49.6 % Lymph % (Auto) 35.6 % [place] % (Auto) 9.6 % Eos % (Auto) 4.6 % Baso % (Auto) 0.4 % Neut # (Auto) 2.37 (1.4-6.5) K/uL Lymph # (Auto) 1.70 (1.2-3.4) K/uL [place] # (Auto) 0.46 (0.11-0.59) K/uL Eos # (Auto) 0.22 (0-0.5) K/uL Baso # (Auto) 0.02 (0-0.2) K/uL Immature Gran # (Auto) 0.01 (0.00-0.02) K/uL Sodium 140 (136-145) mmol/L Potassium 3.8 (3.5-5.1) mmol/L Chloride 107 (98-107) mmol/L Carbon Dioxide 27 (21-32) mmol/L Anion Gap 6 (3-11) BUN 5 L (6-23) mg/dl Creatinine 0.67 (0.6-1.2) mg/dl Est Cr Clr Drug Dosing 112.5 ml/min Est GFR ( Amer) 122.2 ml/min Est GFR (Non-Af Amer) 105.4 ml/min BUN/Creatinine Ratio 7.5 L (10-20) Glucose 90 (70-99(Fasting)) mg/dl Calcium 8.6 (8.5-10.1) mg/dl Magnesium 1.8 (1.7-2.4) mg/dl Total Bilirubin 0.5 (0.2-1.0) mg/dl AST 13 (13-39) U/L ALT 11 (7-52) U/L Alkaline Phosphatase 56 (34-104) U/L Total Protein 5.8 L (6.0-8.3) gm/dl Albumin 3.5 (3.4-5.0) gm/dl Globulin 2.3 L (2.5-4.0) gm/dl Albumin/Globulin Ratio 1.5 (0.9-2) PG Care Time/CCT Total # of Minutes Spent Total Time Spent with Patient: Total time spent is greater than 50% in coordination of care (as documented) at patient's floor/unit and/or counseling patient: Coding Level of Care Code 26152 Subseq Hosp Care Lvl 2 Diagnoses Sigmoid diverticulitis K57.32 History of diverticulitis Z87.19 Positive HARMONY (antinuclear antibody) R76.8 Polyarthropathy or polyarthritis of multiple sites M13.0 Irritable bowel syndrome K58.9 Abdominal pain R10.9
[2021-11-26] MEDS: PIPERACILLIN/TAZOBACTAM 3.375 GM in DEXTROSE 5% 100 ML IV SCH ×2 (02:10→09:18)
[2021-11-26 06:48] LABS: Basophils % (auto) 0.8 %; Eosinophils % (auto) 4.1 %; Hematocrit (blood only) 40.4 % (37-47); Hemoglobin 13.7 g/dL (12.0-16.0); Immature Granulocytes % (auto) 0.2 %; Lymphocytes # (auto) 1.77 K/uL (1.2-3.4); Lymphocytes % (auto) 36.6 %; Mean Corpuscular Hemoglobin 29.7 pg (25-34); Mean Corpuscular Hgb Conc 33.9 g/dL (32-36); Mean Corpuscular Volume 87.4 fL (80-100); Mean Platelet Volume 11.4 fL (7.4-10.4); Monocytes % (auto) 6.6 %; Neutrophils # (auto) 2.49 K/uL (1.4-6.5); Neutrophils % (auto) 51.7 %; Platelet Count 295 K/uL (130-400); RDW Coefficient of Variation 12.8 % (11.5-14.5); RDW Standard Deviation 41.2 fL (36.4-46.3); Red Blood Count 4.62 M/uL (4.2-5.4); White Blood Count 4.83 K/uL (4.8-10.8)
[2021-11-26 06:49] LABS: Basophils # (auto) 0.04 K/uL (0-0.2); Immature Granulocytes # (auto) 0.01 K/uL (0.00-0.02); Monocytes # (auto) 0.32 K/uL (0.11-0.59)
[2021-11-26 07:19] LABS: BUN Creatinine Ratio 9.9 (10-20); Calcium 9.1 mg/dl (8.5-10.1); Creatinine Clr Calc Pharmacy 106.2 ml/min; Est GFR (African American) 118.4 ml/min; Est GFR (Non-African American) 102.1 ml/min; Magnesium 1.8 mg/dl (1.7-2.4); Phosphorus 4.2 mg/dl (2.5-4.9); Potassium 3.7 mmol/L (3.5-5.1)
[2021-11-26] MEDS: MULTIVITAMIN TAB PO SCH (09:18)
[2021-11-26] MEDS ORDERED: AMOXICILLIN/CLAVULANATE 875 MG TAB PO SCH ×2 (10:25→17:00)
--- NOTE | 2021-11-26 11:10 | Gastroenterology Progress Note ---
Date of Service November 26, 2021 Assessment & Plan (1) Acute diverticulitis: Plan: -Continue low residue diet -Continue to hold Metamucil -Would add Miralax 17 gm daily for now -Should complete a total course of 10 days of antibiotic therapy (Cipro & Flagyl or Augmentin) on discharge Admission and Anticipated Discharge Date Admission Date: November 24, 2021 Supervising Physician Co-Signing Physician Notes I personally evaluated the patient and agree with the findings as documented by Marla Pierson, PAC Exam: Constitutional: WD/WN, vitals as above General: EOM intact bilaterally Neck: normal visual inspection Respiratory: normal respiratory effort, lungs clear to auscultation Cardiovascular: RRR, no murmur, no edema Gastrointestinal: abdomennormal to inspection, nondistended, soft, nontender, no hepatosplenomegaly Musculoskeletal: no cyanosis, head normal to inspection Skin: no rashes, warm and dry Neurologic: moves all extremities Psychiatric: A and O x3, euthymic affect Subjective Patient is a 46 yo female with left sided diverticulitis. She reports improvement of her pain. She notes pain continuing with deep palpation of the LLQ. She continues on IV Zosyn. She ate [place] Balm for breakfast this AM. Review of Systems Constitutional: no fever and no chills Respiratory: no cough and no dyspnea Cardiovascular: no chest pain Gastrointestinal: + abdominal pain; no change in bowel habits, no diarrhea/loose stools and no blood in stools Physical Exam Constitutional: well developed Respiratory: normal respiratory effort Cardiovascular: Rate/Rhythm: regular rate Gastrointestinal (Abdomen): Percussion/Palpation: + abdomen tender and abdomen soft Musculoskeletal: Head/Neck/Chest: normocephalic Results & Data Results & Data ([facility]) Vital Signs (Past 12 Hours) Vital Signs Temp Pulse Pulse Resp BP Pulse Ox 11/26/21 07:38 36.8 C 87 16 134/85 99 11/25/21 23:10 36.9 C 84 14 119/75 96 PG Care Time/CCT Total # of Minutes Spent Total Time Spent with Patient: Total time spent is greater than 50% in coordination of care (as documented) at patient's floor/unit and/or counseling patient: Coding Level of Care Code 33916 Subseq Hosp Care Lvl 3 Diagnoses Acute diverticulitis K57.92
--- NOTE | 2021-11-26 12:37 | Discharge Summary ---
Date of Service November 26, 2021 Admission HPI Per Admitting Provider 46-year-old female with a past medical history of diverticulitis, positive HARMONY on Humira, Meryl-Danlos polyarthropathy and hemorrhoids presents for evaluation of abdominal pain diagnosed with diverticulitis. Patient reports that she has had numerous bouts of diverticulitis throughout her life most recently approximately a month ago she had the worst bout which required a month of Cipro Flagyl subsequently followed by Augmentin. She had a colonoscopy on Wednesday of this week and did well in the immediate postoperative. She began to feel typical diverticulitis pains on Wednesday with accompanied loss of appetite, nausea abdominal pain fevers and chills she denies any vomiting. She states her last bowel movement was yesterday. She denies any chest pressure, chest pain, shortness of breath. In the emergency department routine labs were obtained CBC was unremarkable, chemistries are unremarkable, CMP was unremarkable, urine was unremarkable CT abdomen pelvis was performed and consistent with diverticulitis. Hospitalist service was consulted for admission. Patient was sitting upright in bed when I arrived in no acute distress she reiterated in HPI as described above. She notes that she is not currently taking oxycodone or cyclobenzaprine their historical medications from her prior elbow surgery. Principal Diagnosis Recurrent diverticulitis Discharge Exam General: A&Ox3. NAD. Cooperative. HEENT: Atraumatic, normocephalic. Vision and hearing grossly intact. Pulm: CTAB A&P. -wheezes, -rales, -rhonchi. Symmetrical chest rise. No increase in work of breathing. No respiratory distress. Cardiac: RRR, -mrg. Radial pulses intact and symmetrical. Abdominal: Trace left lower quadrant tenderness to palpation without rebound, guarding, or radiation. Bowel sounds intact. Extremities: Warm, dry. Sensation intact in hands and feet to soft touch without asymmetry. 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 PT pulses intact. 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 To do as outpatient: 1. Complete diverticulitis treatment with 10 additional days of Augmentin XR 2 g twice daily 2. Follow-up with surgery as outpatient, patient with recurrent diverticulitis deferring elective resection pending treatment as above 3. Routine follow-up with PCP Sigmoid diverticulitis --> Aug [address] A/P with acute diverticulitis mid descending colon. Repeat CT 10/20 with interval resolution. Underwent C-scope 11/[address] Chen. 4mm hyperplastic polyp removed. Had completed month long course Cipro/Flagyl followed by Augmentin Doing well, then developed worsening abdominal pain, nausea and presented to ER where CT was performed which was consistent with acute diverticulitis. bowel wall thickening and fat stranding about the proximal sigmoid colon and distal descending colon. No abscess or perforation noted Afebrile, no leukocytosis time spend day of discharge minutes including direct patient care, documentation, review of labs and images, and coordination of care. -Already low fiber diet well time was discharge -Zosyn during admission, converted to Augmentin as noted on discharge -dc maintenance IV fluids -IV morphine prn pain -GI on consult -- appreciate assistance -appreciate Surgery consult-try to hold off on elective resection given first need for inpatient hospitalization for diverticulitis -advised to continue to HOLD Humira until infection completely cleared (she never held before when had infection) -f/u with Surgery after discharge Strict return precautions given to patient prior to discharge, she is agreeable to this (2) History of diverticulitis: earlier this year. 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 humira on hold currently (5) Irritable bowel syndrome: Potentially contributing to presentation Monitor for signs of constipation Encourage ambulation as pain control achieved (6) Abdominal pain: 2nd to above slowly improving SCDs for DVT prophylaxis, no signs of DVT during admission Total Time Total Time Spent Total Time Spent (In Minutes): Time spend day of discharge 40 minutes including direct patient care, docu mentation, review of labs and images, and coordination of care. Discharge Plan Discharge Items Patient Disposition: Home - Self-Care Reason For Visit: DIVERTICULITIS Discharge Diagnosis: Diverticulitis Activity: Resume your previous activity Non-emergency contact: Primary Care Provider Call non-emergency contact if: you have any medication questions Follow-up/Referrals: Jhonny Pereira MD [Primary Care Provider] - 12/01/21 11:30 am (APPT WITH DR COLLAZO) Dean Fry DO [Surgeon] - 12/17/21 10:45 am (3 weeks) Diet: Low Fiber Addtl Attending Provider Instructions: You are seen in the hospital for acute recurrent diverticulitis. You were treated with antibiotics and clinically improved. At time of discharge pain was nearly but not completely resolved. You did not have an elevated white blood cell count. Follow-up appointments were made for you as noted above. Been started as an antibiotic as noted below. Your CAT scan did show proximal sigmoid colon and distal descending colon diverticulitis without any evidence of abscess or perforation. You are tolerating a diet well at time of discharge. Surgery was consulted, it was recommended to hold off on elective resection to follow-up with surgery as an outpatient at this time. You have been discharged on an antibiotic, Augmentin. Take Augmentin 2 g XR twice daily for 10 days for diverticulitis. Please do not take Humira while completing treatment for your diverticulitis. Please continue a low residue diet while under treatment for diverticulitis. If you develop any new or worsening symptoms including fever, chills, sweats, chest pain, chest pressure, difficulty breathing, uncontrolled nausea/vomiting, rash, wheezing, passing out or nearly passing out, bleeding, black/bloody bowel movements, or other new or concerning symptoms please call your primary care physician, or call 911 for re-evaluation in the emergency department if you are very concerned. Pending Studies at Discharge: No Stand-Alone Forms: My [employer] Smoking Cessation Medications and DC Order Prescriptions: New amoxicillin-pot clavulanate [Augmentin XR] 1,000-62.5 mg tablet extended release 12 hr 2 tab PO Q12H 10 Days Qty: 40 RF: 0 Continued sumatriptan [Imitrex] 20 mg/actuation spray,non-aerosol 20 mg INTNAS Q2H PRN (Reason: migraine headache) Qty: 6 RF: 3 ergocalciferol (vitamin D2) [Vitamin D2] 1,250 mcg (50,000 unit) capsule 1,250 mcg PO WK Qty: 12 RF: 0 multivitamin Tablet 1 tab PO QAM RF: 0 cyclobenzaprine 5 mg tablet 5 mg PO UD PRN (Reason: muscle spasm) RF: 0 oxycodone-acetaminophen 5-325 mg tablet 1 tab PO Q6 PRN (Reason: Pain) RF: 0 Discontinued Humira Pen 40 mg/0.8 mL Pen Injector Kit 40 mg SUBCUT UD RF: 0 Discharge Orders: Discharge Order (Routine); Ordered 11/26/21 Ordered By: Jackson Woodruff Admission Data Admit Date/Time: 11/24/21 16:33 Attending Provider: Jackson Woodruff Admit Provider: Juanita Rodriguez Primary Care Provider: Jhonny Pereira Other Providers: Juanita Rodriguez ; Clif Chen ; Dean Fry Coding Level of Care Code D/C DAY MANAGEMENT >30 MINS Diagnoses Sigmoid diverticulitis K57.32 History of diverticulitis Z87.19 Positive HARMONY (antinuclear antibody) R76.8 Polyarthropathy or polyarthritis of multiple sites M13.0 Irritable bowel syndrome K58.9 Abdominal pain R10.9
[2021-11-27] MEDS ORDERED: POLYETHYLENE (MIRALAX) 17 GM PACK PO SCH ×2 (09:00)
== END 2021-11-26 13:00 | disposition home or self-care (01) | DRG 392 ==
LOC: 3E 23:39 → ED 23:39 → SUATTDRO 11-23 05:00 → 3E 11-23 10:32 → SUATTDRO 11-24 16:33
DX: K57.32 Diverticulitis of large intestine without perforation or abscess without bleeding; G43.909 Migraine, unspecified, not intractable, without status migrainosus; Z79.899 Other long term (current) drug therapy; Q79.60 Ehlers-Danlos syndrome, unspecified; K58.9 Irritable bowel syndrome, unspecified; M06.4 Inflammatory polyarthropathy